=== PATIENT | male | born 1940 | race Caucasian/White ===

== ENCOUNTER → 2016-08-25 | Outpatient (REF) | payer MEDICARE ==
[~2016-08-25] MED LIST: /TAMS4CA PO; ACET500T37 PO; ACET50TA PO; ADV250INH INH; ADV500INH INH; ADVA250A INH; ALB2.5NEB INH; ALBU17IN2 INH; AMLO25TA PO; AMLO5TAB2 PO; ASPI325T28 PO; ASPI81CH PO; AZIT250T PO; BACT800T5 PO; CEFT500T PO; COLA50CA3 PO; COMBAER6 INH; DOXY75CA3 PO; DRIS50002 PO; DULC5TAB PO; FISH1000 PO; FLOM5CAP PO; FLUT44IN INH; IPRA2IN INH; IPRASOL4 INH; IPRASOL4 NEB; LEVA500T PO; LEVA750T PO; LEVO25TA5 PO; LEVO50TA7 PO; LEVO75TA4 PO; LEVOTHYROXINE PO; MOXI1TAB PO; NYST50SS SS; PRED10TA PO; PRED20TA PO; PRED20TAB PO; PRED50TA PO; PROVENTIL NEB NEB; Spiriva INH; TAMSULOSIN PO; TIOT18INH INH; VITA10002 PO; VITA100041 PO; XARE20TA PO; ZETI10TA21 PO; combivent INH
== END ==
LOC: M LABDRWAD 12:27
PROVIDERS: ATTEND Urology
DX: Z85.46 Personal history of malignant neoplasm of prostate (principal)

== ENCOUNTER → 2016-09-30 | Outpatient (REF) | payer MEDICARE ==
[~2016-09-30] MED LIST changes: +ACET-683 PO; -ACET500T37 PO; +LEVA1TAB2 PO; -LEVA500T PO; -LEVA750T PO; +LEVA750T7 PO; +VITA-182 PO; -VITA100041 PO
[2016-09-30 12:34] LABS: MEAN CORPUSCULAR HEMOGLOBIN 32.4 pg (27.0-33.0); MEAN CORPUSCULAR HGB CONC 33.6 g/dl (32.0-36.5); MEAN CORPUSCULAR VOLUME 96.5 fl (80.0-96.0); RED CELL DISTRIBUTION WIDTH 12.8 % (11.5-14.5)
[2016-09-30 12:36] LABS: VITAMIN B12 LEVEL 1055 PG/ML
[2016-09-30 12:38] LABS: FOLATE 23.1 NG/ML
[2016-09-30 12:48] LABS: ALKALINE PHOSPHATASE 61 U/L (45-117); ALT/SGPT 32 U/L (12-78); ANION GAP 8 MEQ/L (8-16); AST/SGOT 15 U/L (15-37); BILIRUBIN,TOTAL 0.2 MG/DL (0.2-1.0); BLOOD UREA NITROGEN 18 MG/DL (7-18); CALCIUM LEVEL 8.9 MG/DL (8.8-10.2); CARBON DIOXIDE LEVEL 27 MEQ/L (21-32); CHLORIDE LEVEL 104 MEQ/L (98-107); CHOLESTEROL LEVEL 219 MG/DL (<200); CREATININE FOR GFR 0.72 MG/DL (0.70-1.30); FREE T4 1.47 NG/DL (0.76-1.46); GLOMERULAR FILTRATION RATE > 60.0 (>42); GLUCOSE, FASTING 203 MG/DL (83-110); POTASSIUM SERUM 3.8 MEQ/L (3.5-5.1); SODIUM LEVEL 139 MEQ/L (136-145); TRIGLYCERIDES LEVEL 125 MG/DL (<150)
== END ==
LOC: M SFHCADAM 09:03
PROVIDERS: ATTEND Physician Assistant
DX: I48.91 Unspecified atrial fibrillation (principal); M13.0 Polyarthritis, unspecified; J44.9 Chronic obstructive pulmonary disease, unspecified; E03.9 Hypothyroidism, unspecified; E53.8 Deficiency of other specified B group vitamins
CPT/HCPCS: 80053; 80061; 82607; 82746; 84439; 84443; 85027; G0463

== ENCOUNTER → 2016-10-13 | Outpatient (CLI) | payer MEDICARE ==
[~2016-10-13] MED LIST changes: -ACET-683 PO; +ACET500T37 PO; -LEVA1TAB2 PO; +LEVA500T PO; +LEVA750T PO; -LEVA750T7 PO; -VITA-182 PO; +VITA100041 PO
--- NOTE | 2016-10-13 12:13 | REP ---
Clinical: Follow up pulmonary nodule(s). Comparison: 09/27/2015, 07/29/2014. Findings: Moderate stable emphysematous changes are again appreciated. Small scattered ill-defined areas of density in the basilar right upper lobe, right middle lobe and right lower lobe appear more prominent than prior examination. Specifically, an area of opacity measuring 14 mm identified in the deep right sulcus (image 104) along with similar smaller opacities noted. The previously identified small cavitary-type of lesion in the right lower lobe now demonstrates a small adjacent 5 mm soft tissue nodule (image 89) which is more conspicuous than prior examination. No pleural effusion. No pneumothorax. Tracheobronchial tree is patent. The mediastinum is relatively stable and again demonstrates atherosclerotic changes to the thoracic aorta and coronary arteries without cardiomegaly or pericardial effusion. Sub centimeter mediastinal lymph nodes are nonspecific. Surrounding musculoskeletal structures are intact. Impression: Current examination demonstrates new small areas of nodularity/opacity primarily in the deep right sulcus, and the previously noted small cavitary lesion in the right lower lobe has a 5 mm soft tissue nodule which appears more conspicuous than prior examination. A 3-6 month follow-up examination is recommended and if these areas of abnormality persist or enlarge, further investigation including possible PET CT or biopsy may be warranted. Signed by Jordi Wagner MD 10/13/2016 08:45 A
== END ==
LOC: M RAD 07:26
PROVIDERS: ATTEND Internal Medicine Pulmonary Disease
DX: R91.8 Other nonspecific abnormal finding of lung field (principal)

== ENCOUNTER → 2017-01-12 | Outpatient (CLI) | payer MEDICARE ==
[~2017-01-12] MED LIST changes: +ACET-683 PO; -ACET500T37 PO; +LEVA1TAB2 PO; -LEVA500T PO; -LEVA750T PO; +LEVA750T7 PO; +VITA-182 PO; -VITA100041 PO
--- NOTE | 2017-01-12 18:30 | REP ---
REASON: Followup lung nodules. COMPARISON: All priors were reviewed, the latest of which is dated 10/13/2016. The mediastinum and pulmonary zi are unchanged. There are no pleural or pericardial effusions. There is no change in appearance of the imaged upper abdomen or imaged osseous structures. Evaluation of the lung león shows the right lower cavitary lesion to be completely unchanged and the nodular density in the right CP angle to have completely resolved. There are scattered lung field curvilinear and asymmetrical opacities which are stable not only from the latest prior but from older exams. Emphysematous changes are seen throughout the lung león with lung field hyperexpansion and small cystic air spaces with upper lobe predominance status quo. No new abnormal nodules, masses, or opacities have been developed. IMPRESSION: 1. Unchanged small cavitary lesion in right lower lobe. 2. Resolved nodule in the right CP angle. 3. Stable chronic lung field changes as described above. Signed by Roger Vegas DO 01/13/2017 09:47 A
== END ==
LOC: M RAD 09:30
PROVIDERS: ATTEND Internal Medicine Pulmonary Disease
DX: R91.8 Other nonspecific abnormal finding of lung field (principal)

== ENCOUNTER 2017-04-27 03:26 | Emergency (ER) | payer MEDICARE ==
[2017-04-27] MEDS: methylPREDNISolone INJ 125 MG/2 ML VIAL (J2930) IV ×5 (04:30)
[2017-04-27] MEDS: IPRATROPIUM 0.5MG/ALBUTEROL 2.5MG INH SOL UD 3ML (DUONEB)(J7620) NEB ×15 (04:48→04:49)
[2017-04-27 04:59] LABS: BASO % 0.3 % (0.0-1.0); EOS % 0.3 % (0.0-3.0); HEMATOCRIT 42.8 % (42.0-52.0); HEMOGLOBIN 14.3 g/dl (14.0-18.0); IMMATURE GRANULOCYTE % 0.2 % (0-0); LYMPH # 1.2 10^3/uL (1.5-4.5); LYMPH % 11.4 % (24.0-44.0); MEAN CORPUSCULAR HGB CONC 33.4 g/dl (32.0-36.5); MEAN CORPUSCULAR VOLUME 92.6 fl (80.0-96.0); MONO # 0.7 10^3/uL (0.0-0.8); NEUTROPHILS # 8.5 10^3/uL (1.8-7.7); NEUTROPHILS % 80.8 % (36.0-66.0); PLATELET COUNT, AUTOMATED 264 10^3/uL (150-450); RED BLOOD COUNT 4.62 10^6/uL (4.30-6.10); RED CELL DISTRIBUTION WIDTH 13.1 % (11.5-14.5); VENOUS BASE EXCESS 2.9 (-2.0-2.0); VENOUS O2 SATURATION 68.1 % (60.0-80.0); VENOUS PARTIAL PRESSURE O2 35.2 mmHg (30.0-50.0); VENOUS PH 7.381 UNITS (7.330-7.430); VENOUS STANDARD HCO3 26.2 MEQ/L; VENOUS TOTAL CO2 30.5 MEQ/L (24.0-28.0); WHITE BLOOD COUNT 10.5 10^3/uL (4.0-10.0)
[2017-04-27 05:23] LABS: ANION GAP 7 MEQ/L (8-16); BLOOD UREA NITROGEN 10 MG/DL (7-18); CALCIUM LEVEL 8.3 MG/DL (8.8-10.2); CARBON DIOXIDE LEVEL 30 MEQ/L (21-32); CHLORIDE LEVEL 105 MEQ/L (98-107); CK-MB VALUE MASS 1.7 NG/ML (0.0-3.6); CPK CREATINE PHOSPHOKINASE 55 U/L (39-308); CREATININE FOR GFR 0.76 MG/DL (0.70-1.30); GLOMERULAR FILTRATION RATE > 60.0 (>42); GLUCOSE, FASTING 118 MG/DL (83-110); MB/CK RELATIVE INDEX 3.09 (< OR =4); POTASSIUM SERUM 4.1 MEQ/L (3.5-5.1); SODIUM LEVEL 142 MEQ/L (136-145); TROPONIN I < 0.02 NG/ML (< 0.10)
[2017-04-27] MEDS: LevoFLOXacin 750 MG TABLET PO ×5 (06:15)
== END 2017-04-27 07:01 | disposition home or self-care (01) ==
LOC: M ED 03:26
DX: J44.1 Chronic obstructive pulmonary disease with (acute) exacerbation (principal); Z87.891 Personal history of nicotine dependence
CPT/HCPCS: J2930

== ENCOUNTER 2017-07-02 19:28 | Inpatient (IN) | payer MEDICARE ==
[2017-07-02 20:46] LABS: BASO % 0.3 % (0.0-1.0); EOS # 0.1 10^3/uL (0.0-0.50); EOS % 0.5 % (0.0-3.0); HEMATOCRIT 43.7 % (42.0-52.0); HEMOGLOBIN 14.5 g/dl (14.0-18.0); IMMATURE GRANULOCYTE % 0.4 % (0-3.0); LYMPH # 1.2 10^3/uL (1.5-4.5); LYMPH % 10.8 % (24.0-44.0); MEAN CORPUSCULAR HEMOGLOBIN 31.3 pg (27.0-33.0); MEAN CORPUSCULAR HGB CONC 33.2 g/dl (32.0-36.5); MEAN CORPUSCULAR VOLUME 94.2 fl (80.0-96.0); MONO # 0.6 10^3/uL (0.0-0.8); MONO % 5.5 % (0.0-5.0); NEUTROPHILS # 8.8 10^3/uL (1.8-7.7); NEUTROPHILS % 82.5 % (36.0-66.0); PLATELET COUNT, AUTOMATED 301 10^3/uL (150-450); RED BLOOD COUNT 4.64 10^6/uL (4.30-6.10); WHITE BLOOD COUNT 10.6 10^3/uL (4.0-10.0)
[2017-07-02 21:13] LABS: LACTIC ACID SEPSIS PROTOCOL 1.7 MMOL/L (0.4-2.0)
[2017-07-02 21:14] LABS: ANION GAP 9 MEQ/L (8-16); BLOOD UREA NITROGEN 10 MG/DL (7-18); CALCIUM LEVEL 8.7 MG/DL (8.8-10.2); CARBON DIOXIDE LEVEL 26 MEQ/L (21-32); CHLORIDE LEVEL 107 MEQ/L (98-107); CPK CREATINE PHOSPHOKINASE 67 U/L (39-308); CREATININE FOR GFR 0.71 MG/DL (0.70-1.30); GLOMERULAR FILTRATION RATE > 60.0 (>42); GLUCOSE, FASTING 127 MG/DL (70-100); SODIUM LEVEL 142 MEQ/L (136-145); TROPONIN I < 0.02 NG/ML (< 0.10)
[2017-07-02 21:15] LABS: CK-MB VALUE MASS 1.5 NG/ML (0.0-3.6); MB/CK RELATIVE INDEX 2.23 (< OR =4); NT-PRO BNP 249 PG/ML (<450)
[2017-07-02] MEDS: IPRATROPIUM 0.5MG/ALBUTEROL 2.5MG INH SOL UD 3ML (DUONEB)(J7620) NEB ×3 (21:41)
[2017-07-02 21:44] LABS: ABG BASE EXCESS 0.5 (-2.0-2.0); ABG HCO3 24.1 MEQ/L (22.0-26.0); ABG O2 SATURATION 97.8 % (95.0-99.0); ABG PARTIAL PRESSURE CO2 35.9 mmHg (35.0-45.0); ABG PARTIAL PRESSURE O2 96.8 mmHg (75.0-100.0); ABG STANDARD HCO3 24.9 MEQ/L (22.0-26.0); ABG TOTAL CO2 25.2 MEQ/L (23.0-31.0); ABG pH (ARTERIAL) 7.445 UNITS (7.350-7.450)
[2017-07-02 21:55] LABS: INFLUENZA A AMPLIFICATION NEGATIVE (NEGATIVE); INFLUENZA B AMPLIFICATION NEGATIVE (NEGATIVE)
[2017-07-02] MEDS: CEFTRIAXONE SOD 1 GM in APPROPRIATE DILUENT 1 EA IV (23:11)
[2017-07-02] MEDS: AZITHROMYCIN 250 MG TAB PO (23:11)
[2017-07-03] MEDS: NS 1,000 ML IV (00:11)
[2017-07-03] MEDS ORDERED: BISACODYL 10 MG SUPP PR (00:15)
[2017-07-03] MEDS ORDERED: IPRATROPIUM 0.5MG/ALBUTEROL 2.5MG INH SOL UD 3ML (DUONEB)(J7620) NEB (00:15)
[2017-07-03] MEDS ORDERED: ONDANSETRON 4MG/2ML VIAL (J2405) IV (00:15)
[2017-07-03] MEDS: LEVOTHYROXINE 75MCG TABLET (0.075MG) PO (05:39)
[2017-07-03 06:47] LABS: CPK CREATINE PHOSPHOKINASE 43 U/L (39-308); MB/CK RELATIVE INDEX 2.32 (< OR =4); TROPONIN I < 0.02 NG/ML (< 0.10)
[2017-07-03] MEDS: RIVAROXABAN 15 MG TAB (XARELTO) PO (09:15)
[2017-07-03] MEDS: TAMSULOSIN 0.4 MG CAP PO (09:15)
[2017-07-03] MEDS: IPRATROPIUM 0.5MG/ALBUTEROL 2.5MG INH SOL UD 3ML (DUONEB)(J7620) NEB ×3 (09:20→20:00)
[2017-07-03] MEDS ORDERED: ISOVUE-370 76% 100ML VIAL (Q9967) As Ordered (09:40)
[2017-07-03] MEDS: ADVAIR HFA 115/21MCG INHALER INH ×2 (14:41→21:04)
[2017-07-03] MEDS: TIOTROPIUM INHALER/CAPSULE (SPIRIVA) INH (14:41)
[2017-07-03] MEDS: ACETAMINOPHEN TAB 650MG DOSE (2X325MG) PO (16:00)
[2017-07-03 18:09] LABS: D-DIMER QUANT 296.8 ng/ml (<500)
[2017-07-03] MEDS: CEFTRIAXONE SOD 2 GM in APPROPRIATE DILUENT 1 EA IV (22:24)
[2017-07-03] MEDS: AZITHROMYCIN INJ 500 MG, VIAL MATE ADAPTER 1 EACH in D5W 250 ML IV (23:02)
[2017-07-04] MEDS: IPRATROPIUM 0.5MG/ALBUTEROL 2.5MG INH SOL UD 3ML (DUONEB)(J7620) NEB ×4 (01:42→20:00)
[2017-07-04] MEDS: ACETAMINOPHEN TAB 650MG DOSE (2X325MG) PO (02:37)
[2017-07-04] MEDS: LEVOTHYROXINE 75MCG TABLET (0.075MG) PO (05:42)
[2017-07-04 06:35] LABS: HEMATOCRIT 38.3 % (42.0-52.0); HEMOGLOBIN 12.8 g/dl (14.0-18.0); MEAN CORPUSCULAR HEMOGLOBIN 31.4 pg (27.0-33.0); MEAN CORPUSCULAR HGB CONC 33.4 g/dl (32.0-36.5); MEAN CORPUSCULAR VOLUME 94.1 fl (80.0-96.0); PLATELET COUNT, AUTOMATED 319 10^3/uL (150-450); RED BLOOD COUNT 4.07 10^6/uL (4.30-6.10)
[2017-07-04 06:52] LABS: ANION GAP 5 MEQ/L (8-16); BLOOD UREA NITROGEN 16 MG/DL (7-18); CALCIUM LEVEL 8.8 MG/DL (8.8-10.2); CARBON DIOXIDE LEVEL 31 MEQ/L (21-32); CHLORIDE LEVEL 106 MEQ/L (98-107); CREATININE FOR GFR 0.64 MG/DL (0.70-1.30); FREE T4 1.18 NG/DL (0.76-1.46); GLOMERULAR FILTRATION RATE > 60.0 (>42); GLUCOSE, FASTING 104 MG/DL (70-100); SODIUM LEVEL 142 MEQ/L (136-145); THYROID STIMULATING HORMONE 0.847 uIU/ML (0.358-3.740)
[2017-07-04] MEDS: TIOTROPIUM INHALER/CAPSULE (SPIRIVA) INH (07:38)
[2017-07-04] MEDS: ADVAIR HFA 115/21MCG INHALER INH ×2 (07:38→21:41)
[2017-07-04] MEDS: RIVAROXABAN 15 MG TAB (XARELTO) PO (09:33)
[2017-07-04] MEDS: TAMSULOSIN 0.4 MG CAP PO (09:33)
[2017-07-04] MEDS: TUBERCULIN PPD 5 UNITS/0.1 ML ID (13:23)
[2017-07-04] MEDS: guaiFENesin ER 600 MG TAB PO (22:09)
[2017-07-04] MEDS: CEFTRIAXONE SOD 2 GM in APPROPRIATE DILUENT 1 EA IV (23:09)
[2017-07-05] MEDS: AZITHROMYCIN INJ 500 MG, VIAL MATE ADAPTER 1 EACH in D5W 250 ML IV
[2017-07-05] MEDS: IPRATROPIUM 0.5MG/ALBUTEROL 2.5MG INH SOL UD 3ML (DUONEB)(J7620) NEB ×4 (02:31→20:00)
[2017-07-05] MEDS: LEVOTHYROXINE 75MCG TABLET (0.075MG) PO (05:31)
[2017-07-05 05:42] LABS: BASO % 0.4 % (0.0-1.0); EOS # 0.1 10^3/uL (0.0-0.50); EOS % 0.8 % (0.0-3.0); HEMATOCRIT 38.5 % (42.0-52.0); HEMOGLOBIN 12.9 g/dl (14.0-18.0); IMMATURE GRANULOCYTE % 0.5 % (0-3.0); LYMPH # 1.8 10^3/uL (1.5-4.5); MEAN CORPUSCULAR HEMOGLOBIN 31.3 pg (27.0-33.0); MEAN CORPUSCULAR HGB CONC 33.5 g/dl (32.0-36.5); MEAN CORPUSCULAR VOLUME 93.4 fl (80.0-96.0); MONO # 0.6 10^3/uL (0.0-0.8); MONO % 6.5 % (0.0-5.0); NEUTROPHILS # 6.9 10^3/uL (1.8-7.7); NEUTROPHILS % 72.8 % (36.0-66.0); PLATELET COUNT, AUTOMATED 300 10^3/uL (150-450); RED BLOOD COUNT 4.12 10^6/uL (4.30-6.10); RED CELL DISTRIBUTION WIDTH 13.2 % (11.5-14.5); WHITE BLOOD COUNT 9.5 10^3/uL (4.0-10.0)
[2017-07-05 06:01] LABS: ALKALINE PHOSPHATASE 68 U/L (45-117); ALT/SGPT 16 U/L (12-78); ANION GAP 7 MEQ/L (8-16); AST/SGOT 13 U/L (7-37); BLOOD UREA NITROGEN 14 MG/DL (7-18); CALCIUM LEVEL 8.3 MG/DL (8.8-10.2); CARBON DIOXIDE LEVEL 29 MEQ/L (21-32); CHLORIDE LEVEL 106 MEQ/L (98-107); CREATININE FOR GFR 0.63 MG/DL (0.70-1.30); GLOMERULAR FILTRATION RATE > 60.0 (>42); GLUCOSE, FASTING 103 MG/DL (70-100); SODIUM LEVEL 142 MEQ/L (136-145)
[2017-07-05 06:02] LABS: ALBUMIN 2.8 GM/DL (3.2-5.2); ALBUMIN/GLOBULIN RATIO 0.93 (1.00-1.93); BILIRUBIN,TOTAL 0.2 MG/DL (0.2-1.0); PSA SCREENING 0.25 NG/ML (< 4.0); TOTAL PROTEIN 5.8 GM/DL (6.4-8.2)
[2017-07-05] MEDS: TIOTROPIUM INHALER/CAPSULE (SPIRIVA) INH (07:34)
[2017-07-05] MEDS: ADVAIR HFA 115/21MCG INHALER INH ×2 (07:34→19:40)
[2017-07-05] MEDS: TAMSULOSIN 0.4 MG CAP PO (08:24)
[2017-07-05] MEDS: guaiFENesin ER 600 MG TAB PO ×2 (08:24→20:24)
[2017-07-05] MEDS: RIVAROXABAN 15 MG TAB (XARELTO) PO (08:24)
[2017-07-05 14:29] LABS: INR 1.61; PROTHROMBIN TIME 19.6 SECONDS (12.4-14.5)
[2017-07-05 14:30] LABS: PARTIAL THROMBOPLASTIN TIME 46.1 SECONDS (26.8-37.9)
[2017-07-05 14:40] LABS: QUANTIFERON GOLD TB Negative (Negative); TB Test (QFT) Antigen 0.02 IU/mL (.); TB Test (QFT) Antigen Minus Ni <0.01 IU/mL (.); TB Test (QFT) Mitogen 7.92 IU/mL (.); TB Test (QFT) Nil 0.03 IU/mL (.)
[2017-07-05] MEDS: CEFTRIAXONE SOD 2 GM in APPROPRIATE DILUENT 1 EA IV (22:56)
[2017-07-06] MEDS: AZITHROMYCIN INJ 500 MG, VIAL MATE ADAPTER 1 EACH in D5W 250 ML IV ×2 (00:11→23:45)
[2017-07-06] MEDS: IPRATROPIUM 0.5MG/ALBUTEROL 2.5MG INH SOL UD 3ML (DUONEB)(J7620) NEB ×4 (01:16→19:55)
[2017-07-06] MEDS: LEVOTHYROXINE 75MCG TABLET (0.075MG) PO (05:34)
[2017-07-06 05:49] LABS: BASO % 0.5 % (0.0-1.0); EOS # 0.2 10^3/uL (0.0-0.50); EOS % 1.9 % (0.0-3.0); HEMATOCRIT 38.6 % (42.0-52.0); HEMOGLOBIN 12.6 g/dl (14.0-18.0); IMMATURE GRANULOCYTE % 0.5 % (0-3.0); LYMPH % 25.7 % (24.0-44.0); MEAN CORPUSCULAR HEMOGLOBIN 30.3 pg (27.0-33.0); MEAN CORPUSCULAR HGB CONC 32.6 g/dl (32.0-36.5); MEAN CORPUSCULAR VOLUME 92.8 fl (80.0-96.0); MONO # 0.6 10^3/uL (0.0-0.8); MONO % 7.1 % (0.0-5.0); NEUTROPHILS % 64.3 % (36.0-66.0); PLATELET COUNT, AUTOMATED 315 10^3/uL (150-450); RED BLOOD COUNT 4.16 10^6/uL (4.30-6.10); WHITE BLOOD COUNT 7.8 10^3/uL (4.0-10.0)
[2017-07-06 06:19] LABS: ALBUMIN 2.6 GM/DL (3.2-5.2); ALBUMIN/GLOBULIN RATIO 0.72 (1.00-1.93); ALKALINE PHOSPHATASE 66 U/L (45-117); ALT/SGPT 21 U/L (12-78); ANION GAP 7 MEQ/L (8-16); AST/SGOT 14 U/L (7-37); BILIRUBIN,TOTAL 0.2 MG/DL (0.2-1.0); BLOOD UREA NITROGEN 11 MG/DL (7-18); CALCIUM LEVEL 8.2 MG/DL (8.8-10.2); CARBON DIOXIDE LEVEL 28 MEQ/L (21-32); CHLORIDE LEVEL 108 MEQ/L (98-107); CREATININE FOR GFR 0.63 MG/DL (0.70-1.30); GLOMERULAR FILTRATION RATE > 60.0 (>42); GLUCOSE, FASTING 101 MG/DL (70-100); SODIUM LEVEL 143 MEQ/L (136-145); TOTAL PROTEIN 6.2 GM/DL (6.4-8.2)
[2017-07-06] MEDS: TIOTROPIUM INHALER/CAPSULE (SPIRIVA) INH (08:21)
[2017-07-06] MEDS: ADVAIR HFA 115/21MCG INHALER INH ×2 (08:22→19:54)
[2017-07-06] MEDS: TAMSULOSIN 0.4 MG CAP PO (09:18)
[2017-07-06] MEDS: guaiFENesin ER 600 MG TAB PO ×2 (09:18→20:34)
[2017-07-06] MEDS: PPD DOCUMENTATION ENTRY MISC XX (09:18)
[2017-07-06] MEDS: HEPARIN SOD (PORCINE) 5000 UNITS/ML VIAL SQ (11:51)
[2017-07-06 15:10] LABS: INR 1.03; PROTHROMBIN TIME 13.6 SECONDS (12.4-14.5)
[2017-07-06] MEDS: CEFTRIAXONE SOD 2 GM in APPROPRIATE DILUENT 1 EA IV (22:47)
[2017-07-07 00:07] LABS: BODY FLUID CULTURE Not Indicated (.); LEGIONELLA ANTIGEN URINE Negative (Negative); ORGANISM ID Not indicated. (.); SPECIMEN SOURCE Urine (.); URINE STREP PNEUMONIAE ANTIGEN Negative (Negative)
[2017-07-07] MEDS: IPRATROPIUM 0.5MG/ALBUTEROL 2.5MG INH SOL UD 3ML (DUONEB)(J7620) NEB ×4 (01:23→20:00)
[2017-07-07] MEDS: LEVOTHYROXINE 75MCG TABLET (0.075MG) PO (05:29)
[2017-07-07 06:04] LABS: BASO % 0.6 % (0.0-1.0); EOS # 0.2 10^3/uL (0.0-0.50); EOS % 2.6 % (0.0-3.0); HEMATOCRIT 38.2 % (42.0-52.0); HEMOGLOBIN 12.6 g/dl (14.0-18.0); IMMATURE GRANULOCYTE % 0.8 % (0-3.0); LYMPH % 27.1 % (24.0-44.0); MEAN CORPUSCULAR HEMOGLOBIN 30.7 pg (27.0-33.0); MEAN CORPUSCULAR VOLUME 92.9 fl (80.0-96.0); MONO # 0.5 10^3/uL (0.0-0.8); MONO % 6.6 % (0.0-5.0); NEUTROPHILS # 4.5 10^3/uL (1.8-7.7); NEUTROPHILS % 62.3 % (36.0-66.0); PLATELET COUNT, AUTOMATED 338 10^3/uL (150-450); RED BLOOD COUNT 4.11 10^6/uL (4.30-6.10); RED CELL DISTRIBUTION WIDTH 12.7 % (11.5-14.5); WHITE BLOOD COUNT 7.2 10^3/uL (4.0-10.0)
[2017-07-07 06:19] LABS: INR 1.02; PROTHROMBIN TIME 13.5 SECONDS (12.4-14.5)
[2017-07-07 06:30] LABS: ALBUMIN 2.7 GM/DL (3.2-5.2); ALBUMIN/GLOBULIN RATIO 0.77 (1.00-1.93); ALKALINE PHOSPHATASE 71 U/L (45-117); ALT/SGPT 21 U/L (12-78); ANION GAP 7 MEQ/L (8-16); AST/SGOT 13 U/L (7-37); BILIRUBIN,TOTAL 0.3 MG/DL (0.2-1.0); BLOOD UREA NITROGEN 10 MG/DL (7-18); CALCIUM LEVEL 8.5 MG/DL (8.8-10.2); CARBON DIOXIDE LEVEL 30 MEQ/L (21-32); CHLORIDE LEVEL 104 MEQ/L (98-107); CREATININE FOR GFR 0.74 MG/DL (0.70-1.30); GLOMERULAR FILTRATION RATE > 60.0 (>42); GLUCOSE, FASTING 102 MG/DL (70-100); POTASSIUM SERUM 4.1 MEQ/L (3.5-5.1); SODIUM LEVEL 141 MEQ/L (136-145); TOTAL PROTEIN 6.2 GM/DL (6.4-8.2)
[2017-07-07] MEDS: TIOTROPIUM INHALER/CAPSULE (SPIRIVA) INH (08:39)
[2017-07-07] MEDS: ADVAIR HFA 115/21MCG INHALER INH ×2 (08:39→19:24)
[2017-07-07] MEDS: TAMSULOSIN 0.4 MG CAP PO (09:57)
[2017-07-07] MEDS: HEPARIN SOD (PORCINE) 5000 UNITS/ML VIAL SQ (09:58)
[2017-07-07] MEDS: guaiFENesin ER 600 MG TAB PO ×2 (09:58→20:58)
[2017-07-07] MEDS ORDERED: DOCUSATE SODIUM 100 MG CAP PO (10:45)
[2017-07-07] MEDS ORDERED: LIDOCAINE 1% MDV 20ML VIAL As Ordered (11:49)
[2017-07-07] MEDS ORDERED: RIVAROXABAN 15 MG TAB (XARELTO) PO (18:00)
[2017-07-07] MEDS: ACETAMINOPHEN TAB 650MG DOSE (2X325MG) PO (18:38)
[2017-07-07] MEDS: CEFDINIR 300 MG CAP (OMNICEF) PO (20:58)
[2017-07-08] MEDS: IPRATROPIUM 0.5MG/ALBUTEROL 2.5MG INH SOL UD 3ML (DUONEB)(J7620) NEB ×2 (01:12→07:45)
[2017-07-08] MEDS: LEVOTHYROXINE 75MCG TABLET (0.075MG) PO (05:35)
[2017-07-08] MEDS: TIOTROPIUM INHALER/CAPSULE (SPIRIVA) INH (07:45)
[2017-07-08] MEDS: ADVAIR HFA 115/21MCG INHALER INH (07:45)
[2017-07-08] MEDS: TAMSULOSIN 0.4 MG CAP PO (09:58)
[2017-07-08] MEDS: guaiFENesin ER 600 MG TAB PO (09:58)
[2017-07-08] MEDS: CEFDINIR 300 MG CAP (OMNICEF) PO (09:58)
[2017-07-08] MEDS: AZITHROMYCIN 250 MG TAB PO (09:58)
== END 2017-07-08 15:00 | disposition home or self-care (01) | DRG 179 ==
LOC: M ED INP 19:29 → M MSPAV 07-03 19:39 → M ED 19:28
PROC: 0BBF3ZX Excision of Right Lower Lung Lobe, Percutaneous Approach, Diagnostic (ICD-10-PCS; principal; 2017-07-07)
DX: J15.6 Pneumonia due to other Gram-negative bacteria (principal); J44.9 Chronic obstructive pulmonary disease, unspecified; I48.91 Unspecified atrial fibrillation; Z66 Do not resuscitate; E03.9 Hypothyroidism, unspecified; Z92.3 Personal history of irradiation; Z88.8 Allergy status to other drugs, medicaments and biological substances; Z79.899 Other long term (current) drug therapy; Z79.01 Long term (current) use of anticoagulants; Z85.46 Personal history of malignant neoplasm of prostate; Z87.891 Personal history of nicotine dependence; B96.89 Other specified bacterial agents as the cause of diseases classified elsewhere

== ENCOUNTER → 2017-08-31 | Outpatient (REF) | payer MEDICARE ==
[2017-08-31 13:29] LABS: PROSTATIC SPECIFIC AG MONITOR 0.47 NG/ML (< 4.0)
== END ==
LOC: M LAB REF 12:11
DX: Z08 Encounter for follow-up examination after completed treatment for malignant neoplasm (principal); Z85.46 Personal history of malignant neoplasm of prostate
CPT/HCPCS: 84153

== ENCOUNTER → 2017-11-05 | Outpatient (REF) | payer MEDICARE | LOC: M LAB REF 13:20 | DX: J44.9 Chronic obstructive pulmonary disease, unspecified (principal) | CPT/HCPCS: 87184 ==

== ENCOUNTER → 2017-11-12 | Outpatient (CLI) | payer MEDICARE | LOC: M SMT 09:52 | DX: J44.9 Chronic obstructive pulmonary disease, unspecified (principal) | CPT/HCPCS: 71046 ==

== ENCOUNTER 2017-11-18 18:55 | Emergency (ER) | payer MEDICARE ==
[2017-11-18] MEDS: IPRATROPIUM 0.5MG/ALBUTEROL 2.5MG INH SOL UD 3ML (DUONEB)(J7620) NEB (20:32)
[2017-11-18 20:40] LABS: BASO % 0.3 % (0.0-1.0); EOS # 0.1 10^3/uL (0.0-0.50); EOS % 0.8 % (0.0-3.0); HEMATOCRIT 43.8 % (42.0-52.0); HEMOGLOBIN 14.4 g/dl (13.5-17.5); IMMATURE GRANULOCYTE % 0.5 % (0-3.0); LYMPH # 1.9 10^3/uL (1.5-4.5); LYMPH % 14.2 % (24.0-44.0); MEAN CORPUSCULAR HEMOGLOBIN 31.5 pg (27.0-33.0); MEAN CORPUSCULAR HGB CONC 32.9 g/dl (32.0-36.5); MEAN CORPUSCULAR VOLUME 95.8 fl (80.0-96.0); MONO # 0.9 10^3/uL (0.0-0.8); MONO % 6.6 % (0.0-5.0); NEUTROPHILS # 10.2 10^3/uL (1.8-7.7); NEUTROPHILS % 77.6 % (36.0-66.0); PLATELET COUNT, AUTOMATED 306 10^3/uL (150-450); RED BLOOD COUNT 4.57 10^6/uL (4.30-6.10); RED CELL DISTRIBUTION WIDTH 13.1 % (11.5-14.5); WHITE BLOOD COUNT 13.1 10^3/uL (4.0-10.0)
[2017-11-18 20:43] LABS: LACTIC ACID SEPSIS PROTOCOL 1.2 MMOL/L (0.4-2.0)
[2017-11-18 20:45] LABS: ANION GAP 7 MEQ/L (8-16); BLOOD UREA NITROGEN 12 MG/DL (7-18); CALCIUM LEVEL 7.8 MG/DL (8.8-10.2); CARBON DIOXIDE LEVEL 28 MEQ/L (21-32); CHLORIDE LEVEL 109 MEQ/L (98-107); CK-MB VALUE MASS 1.7 NG/ML (<3.6); CPK CREATINE PHOSPHOKINASE 77 U/L (39-308); CREATININE FOR GFR 0.62 MG/DL (0.70-1.30); GLOMERULAR FILTRATION RATE > 60.0 (>42); GLUCOSE, FASTING 77 MG/DL (70-100); SODIUM LEVEL 144 MEQ/L (136-145); TROPONIN I < 0.02 NG/ML (< 0.10)
[2017-11-18 20:56] LABS: ABG BASE EXCESS 2.3 (-2.0-2.0); ABG HCO3 26.7 MEQ/L (22.0-26.0); ABG O2 SATURATION 97.7 % (95.0-99.0); ABG PARTIAL PRESSURE CO2 40.9 mmHg (35.0-45.0); ABG PARTIAL PRESSURE O2 92.9 mmHg (75.0-100.0); ABG STANDARD HCO3 26.5 MEQ/L (22.0-26.0); ABG pH (ARTERIAL) 7.433 UNITS (7.350-7.450)
[2017-11-18] MEDS: ONDANSETRON 4MG/2ML VIAL (J2405) IV (22:30)
[2017-11-18] MEDS: MORPHINE 2 MG/ML 1ML SYRINGE (J2270) IV (22:51)
[2017-11-18] MEDS ORDERED: ISOVUE-370 76% 100ML VIAL (Q9967) As Ordered (22:53)
[2017-11-18 23:45] LABS: CK-MB VALUE MASS 1.1 NG/ML (<3.6); CPK CREATINE PHOSPHOKINASE 63 U/L (39-308); MB/CK RELATIVE INDEX 1.74 (< OR =4); TROPONIN I < 0.02 NG/ML (< 0.10)
[2017-11-19] MEDS: LevoFLOXacin 750 MG TABLET PO (01:00)
[2017-11-19] MEDS: NORCO 5/325MG TABLET (BULK FOR ED) PO (01:00)
== END 2017-11-19 01:13 | disposition home or self-care (01) ==
LOC: M ED 11-19 01:13
DX: J18.9 Pneumonia, unspecified organism (principal); I45.10 Unspecified right bundle-branch block; I48.91 Unspecified atrial fibrillation; I25.10 Atherosclerotic heart disease of native coronary artery without angina pectoris; I25.2 Old myocardial infarction; J44.9 Chronic obstructive pulmonary disease, unspecified; Z95.5 Presence of coronary angioplasty implant and graft; Z87.891 Personal history of nicotine dependence; Z79.82 Long term (current) use of aspirin; Z79.899 Other long term (current) drug therapy; Z88.8 Allergy status to other drugs, medicaments and biological substances
CPT/HCPCS: J2405

== ENCOUNTER 2017-12-03 13:34 | Inpatient (IN) | payer MEDICARE ==
[2017-12-03] MEDS: ACETAMINOPHEN 500 MG TAB PO ×2 (14:26→22:05)
[2017-12-03] MEDS: IPRATROPIUM 0.5MG/ALBUTEROL 2.5MG INH SOL UD 3ML (DUONEB)(J7620) NEB ×2 (15:20→20:24)
[2017-12-03] MEDS: cefTRIAXone SOD 2 GM in D5W MINI-BAG PLUS 50 ML IV (16:33)
[2017-12-03] MEDS: FOLIC ACID 1 MG TAB PO (16:34)
[2017-12-03 17:07] LABS: HEMATOCRIT 44.1 % (42.0-52.0); HEMOGLOBIN 14.6 g/dl (13.5-17.5); MEAN CORPUSCULAR HEMOGLOBIN 31.8 pg (27.0-33.0); MEAN CORPUSCULAR HGB CONC 33.1 g/dl (32.0-36.5); MEAN CORPUSCULAR VOLUME 96.1 fl (80.0-96.0); PLATELET COUNT, AUTOMATED 294 10^3/uL (150-450); RED BLOOD COUNT 4.59 10^6/uL (4.30-6.10); WHITE BLOOD COUNT 18.6 10^3/uL (4.0-10.0)
[2017-12-03] MEDS: methylPREDNISolone INJ 125 MG/2 ML VIAL (J2930) IV ×2 (17:19→22:05)
[2017-12-03 17:36] LABS: ALBUMIN 3.4 GM/DL (3.2-5.2); ALBUMIN/GLOBULIN RATIO 1.06 (1.00-1.93); ALKALINE PHOSPHATASE 66 U/L (45-117); ALT/SGPT 23 U/L (12-78); ANION GAP 7 MEQ/L (8-16); AST/SGOT 15 U/L (7-37); BILIRUBIN,TOTAL 0.8 MG/DL (0.2-1.0); BLOOD UREA NITROGEN 18 MG/DL (7-18); CALCIUM LEVEL 8.8 MG/DL (8.8-10.2); CARBON DIOXIDE LEVEL 28 MEQ/L (21-32); CHLORIDE LEVEL 106 MEQ/L (98-107); GLOMERULAR FILTRATION RATE > 60.0 (>42); GLUCOSE, FASTING 137 MG/DL (70-100); POTASSIUM SERUM 4.7 MEQ/L (3.5-5.1); SODIUM LEVEL 141 MEQ/L (136-145); TOTAL PROTEIN 6.6 GM/DL (6.4-8.2)
[2017-12-03] MEDS: PANTOPRAZOLE 40MG INJ (PROTONIX) (C9113) IV (18:15)
[2017-12-03] MEDS: ADVAIR HFA 230/21MCG INHALER INH (20:24)
[2017-12-03] MEDS: TAMSULOSIN 0.4 MG CAP PO (21:21)
[2017-12-03] MEDS: BACTRIM 160MG/800MG DS TAB PO (21:22)
[2017-12-04] MEDS: IPRATROPIUM 0.5MG/ALBUTEROL 2.5MG INH SOL UD 3ML (DUONEB)(J7620) NEB ×8 (01:44→23:39)
[2017-12-04] MEDS: methylPREDNISolone INJ 125 MG/2 ML VIAL (J2930) IV ×4 (04:06→22:50)
[2017-12-04] MEDS: ACETAMINOPHEN 500 MG TAB PO ×3 (04:06→21:14)
[2017-12-04] MEDS: LEVOTHYROXINE 75MCG TABLET (0.075MG) PO (05:57)
[2017-12-04] MEDS: PANTOPRAZOLE 40MG INJ (PROTONIX) (C9113) IV ×2 (05:57→17:24)
[2017-12-04 06:33] LABS: HEMOGLOBIN 14.7 g/dl (13.5-17.5); MEAN CORPUSCULAR HEMOGLOBIN 31.1 pg (27.0-33.0); MEAN CORPUSCULAR HGB CONC 33.4 g/dl (32.0-36.5); MEAN CORPUSCULAR VOLUME 93.2 fl (80.0-96.0); PLATELET COUNT, AUTOMATED 323 10^3/uL (150-450); RED BLOOD COUNT 4.72 10^6/uL (4.30-6.10); RED CELL DISTRIBUTION WIDTH 13.1 % (11.5-14.5); WHITE BLOOD COUNT 17.9 10^3/uL (4.0-10.0)
[2017-12-04 07:00] LABS: ANION GAP 8 MEQ/L (8-16); BLOOD UREA NITROGEN 14 MG/DL (7-18); CALCIUM LEVEL 8.9 MG/DL (8.8-10.2); CARBON DIOXIDE LEVEL 26 MEQ/L (21-32); CHLORIDE LEVEL 105 MEQ/L (98-107); CREATININE FOR GFR 0.84 MG/DL (0.70-1.30); GLOMERULAR FILTRATION RATE > 60.0 (>42); GLUCOSE, FASTING 194 MG/DL (70-100); POTASSIUM SERUM 4.4 MEQ/L (3.5-5.1); SODIUM LEVEL 139 MEQ/L (136-145)
[2017-12-04] MEDS: TIOTROPIUM INHALER/CAPSULE (SPIRIVA) INH (07:36)
[2017-12-04] MEDS: ADVAIR HFA 230/21MCG INHALER INH ×2 (07:37→19:45)
[2017-12-04] MEDS: FOLIC ACID 1 MG TAB PO (08:42)
[2017-12-04] MEDS: CYANOCOBALAMIN 500 MCG TAB PO (08:42)
[2017-12-04] MEDS: BACTRIM 160MG/800MG DS TAB PO ×2 (08:43→21:14)
[2017-12-04] MEDS: traMADol 50 MG TAB PO (09:26)
[2017-12-04] MEDS: MIRALAX *UNIT DOSE* 17GM PACKET PO (09:26)
[2017-12-04] MEDS: MORPHINE 4 MG/ML 1ML VIAL/SYRINGE (J2270) IV (12:07)
[2017-12-04] MEDS: cefTRIAXone SOD 2 GM in D5W MINI-BAG PLUS 50 ML IV (16:01)
[2017-12-04] MEDS: RIVAROXABAN 15 MG TAB (XARELTO) PO (17:24)
[2017-12-04] MEDS: TAMSULOSIN 0.4 MG CAP PO (21:14)
[2017-12-05] MEDS: IPRATROPIUM 0.5MG/ALBUTEROL 2.5MG INH SOL UD 3ML (DUONEB)(J7620) NEB ×5 (03:17→20:00)
[2017-12-05] MEDS: ACETAMINOPHEN 500 MG TAB PO ×2 (03:28→20:22)
[2017-12-05] MEDS: PANTOPRAZOLE 40MG INJ (PROTONIX) (C9113) IV ×2 (05:10→17:06)
[2017-12-05] MEDS: LEVOTHYROXINE 75MCG TABLET (0.075MG) PO (05:10)
[2017-12-05] MEDS: methylPREDNISolone INJ 125 MG/2 ML VIAL (J2930) IV ×4 (05:11→23:04)
[2017-12-05 07:25] LABS: HEMATOCRIT 43.9 % (42.0-52.0); HEMOGLOBIN 14.9 g/dl (13.5-17.5); MEAN CORPUSCULAR HEMOGLOBIN 31.7 pg (27.0-33.0); MEAN CORPUSCULAR HGB CONC 33.9 g/dl (32.0-36.5); MEAN CORPUSCULAR VOLUME 93.4 fl (80.0-96.0); PLATELET COUNT, AUTOMATED 356 10^3/uL (150-450); RED CELL DISTRIBUTION WIDTH 13.1 % (11.5-14.5); WHITE BLOOD COUNT 17.1 10^3/uL (4.0-10.0)
[2017-12-05 07:47] LABS: ANION GAP 11 MEQ/L (8-16); BLOOD UREA NITROGEN 21 MG/DL (7-18); CALCIUM LEVEL 9.2 MG/DL (8.8-10.2); CARBON DIOXIDE LEVEL 27 MEQ/L (21-32); CHLORIDE LEVEL 97 MEQ/L (98-107); CREATININE FOR GFR 0.94 MG/DL (0.70-1.30); GLOMERULAR FILTRATION RATE > 60.0 (>42); GLUCOSE, FASTING 150 MG/DL (70-100); POTASSIUM SERUM 4.2 MEQ/L (3.5-5.1); SODIUM LEVEL 135 MEQ/L (136-145)
[2017-12-05] MEDS: TIOTROPIUM INHALER/CAPSULE (SPIRIVA) INH (08:28)
[2017-12-05] MEDS: ADVAIR HFA 230/21MCG INHALER INH ×2 (08:29→20:23)
[2017-12-05] MEDS: CYANOCOBALAMIN 500 MCG TAB PO (09:00)
[2017-12-05] MEDS: FOLIC ACID 1 MG TAB PO (09:00)
[2017-12-05] MEDS: MIRALAX *UNIT DOSE* 17GM PACKET PO (09:00)
[2017-12-05] MEDS: BACTRIM 160MG/800MG DS TAB PO ×2 (09:00→20:22)
[2017-12-05 10:41] LABS: ABG BASE EXCESS 1.4 (-2.0-2.0); ABG HCO3 26.4 MEQ/L (22.0-26.0); ABG O2 SATURATION 95.2 % (95.0-99.0); ABG PARTIAL PRESSURE CO2 43.1 mmHg (35.0-45.0); ABG PARTIAL PRESSURE O2 76.2 mmHg (75.0-100.0); ABG STANDARD HCO3 25.6 MEQ/L (22.0-26.0); ABG TOTAL CO2 27.7 MEQ/L (23.0-31.0); ABG pH (ARTERIAL) 7.405 UNITS (7.350-7.450)
[2017-12-05] MEDS: traMADol 50 MG TAB PO ×2 (11:40→20:24)
[2017-12-05] MEDS: cefTRIAXone SOD 2 GM in D5W MINI-BAG PLUS 50 ML IV (16:00)
[2017-12-05] MEDS: RIVAROXABAN 15 MG TAB (XARELTO) PO (17:06)
[2017-12-05] MEDS: TAMSULOSIN 0.4 MG CAP PO (20:22)
[2017-12-06] MEDS: IPRATROPIUM 0.5MG/ALBUTEROL 2.5MG INH SOL UD 3ML (DUONEB)(J7620) NEB ×4 (01:05→20:00)
[2017-12-06] MEDS: LEVOTHYROXINE 75MCG TABLET (0.075MG) PO (05:11)
[2017-12-06] MEDS: PANTOPRAZOLE 40MG INJ (PROTONIX) (C9113) IV ×2 (05:11→17:09)
[2017-12-06] MEDS: methylPREDNISolone INJ 125 MG/2 ML VIAL (J2930) IV ×4 (05:11→22:02)
[2017-12-06 06:08] LABS: HEMATOCRIT 42.6 % (42.0-52.0); HEMOGLOBIN 14.5 g/dl (13.5-17.5); MEAN CORPUSCULAR HEMOGLOBIN 31.4 pg (27.0-33.0); MEAN CORPUSCULAR VOLUME 92.2 fl (80.0-96.0); PLATELET COUNT, AUTOMATED 375 10^3/uL (150-450); RED BLOOD COUNT 4.62 10^6/uL (4.30-6.10); RED CELL DISTRIBUTION WIDTH 13.2 % (11.5-14.5); WHITE BLOOD COUNT 12.2 10^3/uL (4.0-10.0)
[2017-12-06 06:32] LABS: ANION GAP 10 MEQ/L (8-16); BLOOD UREA NITROGEN 24 MG/DL (7-18); CALCIUM LEVEL 9.1 MG/DL (8.8-10.2); CARBON DIOXIDE LEVEL 29 MEQ/L (21-32); CHLORIDE LEVEL 94 MEQ/L (98-107); CREATININE FOR GFR 0.84 MG/DL (0.70-1.30); GLOMERULAR FILTRATION RATE > 60.0 (>42); GLUCOSE, FASTING 130 MG/DL (70-100); POTASSIUM SERUM 4.2 MEQ/L (3.5-5.1); SODIUM LEVEL 133 MEQ/L (136-145)
[2017-12-06] MEDS: TIOTROPIUM INHALER/CAPSULE (SPIRIVA) INH (07:14)
[2017-12-06] MEDS: ADVAIR HFA 230/21MCG INHALER INH ×2 (07:15→20:11)
[2017-12-06] MEDS: CYANOCOBALAMIN 500 MCG TAB PO (08:26)
[2017-12-06] MEDS: BACTRIM 160MG/800MG DS TAB PO ×2 (08:26→20:36)
[2017-12-06] MEDS: MIRALAX *UNIT DOSE* 17GM PACKET PO (08:26)
[2017-12-06] MEDS: FOLIC ACID 1 MG TAB PO (08:26)
[2017-12-06] MEDS: cefTRIAXone SOD 2 GM in D5W MINI-BAG PLUS 50 ML IV (15:16)
[2017-12-06 16:34] LABS: BEDSIDE GLUCOSE 133 MG/DL (83-110)
[2017-12-06] MEDS: RIVAROXABAN 15 MG TAB (XARELTO) PO (17:08)
[2017-12-06] MEDS: TAMSULOSIN 0.4 MG CAP PO (20:36)
[2017-12-06] MEDS: ACETAMINOPHEN 500 MG TAB PO (20:36)
[2017-12-07] MEDS: IPRATROPIUM 0.5MG/ALBUTEROL 2.5MG INH SOL UD 3ML (DUONEB)(J7620) NEB ×7 (00:30→23:18)
[2017-12-07] MEDS: PANTOPRAZOLE 40MG INJ (PROTONIX) (C9113) IV ×2 (05:21→18:07)
[2017-12-07] MEDS: LEVOTHYROXINE 75MCG TABLET (0.075MG) PO (05:21)
[2017-12-07] MEDS: methylPREDNISolone INJ 125 MG/2 ML VIAL (J2930) IV (05:21)
[2017-12-07 07:34] LABS: HEMATOCRIT 41.4 % (42.0-52.0); HEMOGLOBIN 14.2 g/dl (13.5-17.5); MEAN CORPUSCULAR HEMOGLOBIN 31.6 pg (27.0-33.0); MEAN CORPUSCULAR HGB CONC 34.3 g/dl (32.0-36.5); PLATELET COUNT, AUTOMATED 293 10^3/uL (150-450); WHITE BLOOD COUNT 7.6 10^3/uL (4.0-10.0)
[2017-12-07] MEDS: TIOTROPIUM INHALER/CAPSULE (SPIRIVA) INH (07:35)
[2017-12-07] MEDS: ADVAIR HFA 230/21MCG INHALER INH ×2 (07:36→19:07)
[2017-12-07 07:41] LABS: ANION GAP 7 MEQ/L (8-16); BLOOD UREA NITROGEN 22 MG/DL (7-18); CALCIUM LEVEL 8.8 MG/DL (8.8-10.2); CARBON DIOXIDE LEVEL 31 MEQ/L (21-32); CHLORIDE LEVEL 100 MEQ/L (98-107); CREATININE FOR GFR 0.68 MG/DL (0.70-1.30); GLOMERULAR FILTRATION RATE > 60.0 (>42); GLUCOSE, FASTING 125 MG/DL (70-100); POTASSIUM SERUM 4.7 MEQ/L (3.5-5.1); SODIUM LEVEL 138 MEQ/L (136-145)
[2017-12-07] MEDS: FOLIC ACID 1 MG TAB PO (09:23)
[2017-12-07] MEDS: MIRALAX *UNIT DOSE* 17GM PACKET PO (09:23)
[2017-12-07] MEDS: CYANOCOBALAMIN 500 MCG TAB PO (09:23)
[2017-12-07] MEDS: BACTRIM 160MG/800MG DS TAB PO (09:23)
[2017-12-07] MEDS: RIVAROXABAN 15 MG TAB (XARELTO) PO (18:07)
[2017-12-07] MEDS: TAMSULOSIN 0.4 MG CAP PO (20:52)
[2017-12-07] MEDS: CEFDINIR 300 MG CAP (OMNICEF) PO (20:52)
[2017-12-07] MEDS: predniSONE 20 MG TAB PO (20:52)
[2017-12-08] MEDS: IPRATROPIUM 0.5MG/ALBUTEROL 2.5MG INH SOL UD 3ML (DUONEB)(J7620) NEB ×2 (03:47→08:27)
[2017-12-08] MEDS: LEVOTHYROXINE 75MCG TABLET (0.075MG) PO (05:15)
[2017-12-08 07:06] LABS: HEMATOCRIT 42.2 % (42.0-52.0); HEMOGLOBIN 13.9 g/dl (13.5-17.5); MEAN CORPUSCULAR HEMOGLOBIN 31.4 pg (27.0-33.0); MEAN CORPUSCULAR HGB CONC 32.9 g/dl (32.0-36.5); MEAN CORPUSCULAR VOLUME 95.5 fl (80.0-96.0); PLATELET COUNT, AUTOMATED 299 10^3/uL (150-450); RED BLOOD COUNT 4.42 10^6/uL (4.30-6.10); RED CELL DISTRIBUTION WIDTH 13.1 % (11.5-14.5); WHITE BLOOD COUNT 10.4 10^3/uL (4.0-10.0)
[2017-12-08 07:13] LABS: ANION GAP 4 MEQ/L (8-16); BLOOD UREA NITROGEN 23 MG/DL (7-18); CALCIUM LEVEL 8.5 MG/DL (8.8-10.2); CARBON DIOXIDE LEVEL 32 MEQ/L (21-32); CHLORIDE LEVEL 103 MEQ/L (98-107); CREATININE FOR GFR 0.73 MG/DL (0.70-1.30); GLOMERULAR FILTRATION RATE > 60.0 (>42); GLUCOSE, FASTING 143 MG/DL (70-100); POTASSIUM SERUM 4.9 MEQ/L (3.5-5.1); SODIUM LEVEL 139 MEQ/L (136-145)
[2017-12-08] MEDS: ADVAIR HFA 230/21MCG INHALER INH (08:26)
[2017-12-08] MEDS: TIOTROPIUM INHALER/CAPSULE (SPIRIVA) INH (08:26)
[2017-12-08] MEDS: PANTOPRAZOLE 40MG TAB (PROTONIX) PO (10:17)
[2017-12-08] MEDS: FOLIC ACID 1 MG TAB PO (10:17)
[2017-12-08] MEDS: MIRALAX *UNIT DOSE* 17GM PACKET PO (10:17)
[2017-12-08] MEDS: CYANOCOBALAMIN 500 MCG TAB PO (10:17)
[2017-12-08] MEDS: CEFDINIR 300 MG CAP (OMNICEF) PO (10:17)
[2017-12-08] MEDS: predniSONE 20 MG TAB PO (10:17)
== END 2017-12-08 10:45 | disposition home or self-care (01) | DRG 178 ==
LOC: M MS5PR 13:34
DX: J15.6 Pneumonia due to other Gram-negative bacteria (principal); J47.1 Bronchiectasis with (acute) exacerbation; F03.91 Unspecified dementia, unspecified severity, with behavioral disturbance; D64.9 Anemia, unspecified; E03.9 Hypothyroidism, unspecified; E78.5 Hyperlipidemia, unspecified; E55.9 Vitamin D deficiency, unspecified; R09.1 Pleurisy; I48.91 Unspecified atrial fibrillation; Z79.82 Long term (current) use of aspirin; Z79.899 Other long term (current) drug therapy; Z88.8 Allergy status to other drugs, medicaments and biological substances; K21.9 Gastro-esophageal reflux disease without esophagitis; Z87.891 Personal history of nicotine dependence; N40.0 Benign prostatic hyperplasia without lower urinary tract symptoms; Z79.01 Long term (current) use of anticoagulants; E53.8 Deficiency of other specified B group vitamins; C61 Malignant neoplasm of prostate; I10 Essential (primary) hypertension

== ENCOUNTER → 2017-12-03 | Outpatient (REF) | payer MEDICARE ==
[2017-12-03 20:06] LABS: ALBUMIN 3.4 GM/DL (3.2-5.2); ALBUMIN/GLOBULIN RATIO 1.06 (1.00-1.93); ALKALINE PHOSPHATASE 68 U/L (45-117); ALT/SGPT 22 U/L (12-78); ANION GAP 7 MEQ/L (8-16); AST/SGOT 14 U/L (7-37); BILIRUBIN,TOTAL 0.5 MG/DL (0.2-1.0); BLOOD UREA NITROGEN 17 MG/DL (7-18); CALCIUM LEVEL 8.8 MG/DL (8.8-10.2); CARBON DIOXIDE LEVEL 30 MEQ/L (21-32); CHLORIDE LEVEL 108 MEQ/L (98-107); CHOLESTEROL LEVEL 201 MG/DL (<200); CHOLESTEROL RISK RATIO 3.654 (<5); CREATININE FOR GFR 0.68 MG/DL (0.70-1.30); FREE T4 1.17 NG/DL (0.76-1.46); GLOMERULAR FILTRATION RATE > 60.0 (>42); GLUCOSE, FASTING 72 MG/DL (70-100); HDL CHOLESTEROL 55 MG/DL (>40); LDL CHOLESTEROL 121.2 MG/DL (<100); NON-HDL-C 146 MG/DL; POTASSIUM SERUM 4.7 MEQ/L (3.5-5.1); SODIUM LEVEL 145 MEQ/L (136-145); TOTAL PROTEIN 6.6 GM/DL (6.4-8.2); TRIGLYCERIDES LEVEL 124 MG/DL (<150)
[2017-12-03 20:08] LABS: HEMATOCRIT 44.7 % (42.0-52.0); HEMOGLOBIN 14.4 g/dl (13.5-17.5); MEAN CORPUSCULAR HEMOGLOBIN 31.2 pg (27.0-33.0); MEAN CORPUSCULAR HGB CONC 32.2 g/dl (32.0-36.5); MEAN CORPUSCULAR VOLUME 96.8 fl (80.0-96.0); PLATELET COUNT, AUTOMATED 317 10^3/uL (150-450); RED BLOOD COUNT 4.62 10^6/uL (4.30-6.10); WHITE BLOOD COUNT 13.1 10^3/uL (4.0-10.0)
[2017-12-03 20:14] LABS: TOTAL 25(OH) VITAMIN D 33.1 NG/ML (30.0-100.0)
== END ==
LOC: M SFHCADAM 11:46
DX: D64.9 Anemia, unspecified (principal); J44.9 Chronic obstructive pulmonary disease, unspecified; E03.9 Hypothyroidism, unspecified; E78.5 Hyperlipidemia, unspecified; E55.9 Vitamin D deficiency, unspecified

== ENCOUNTER → 2018-01-04 | Outpatient (REF) | payer MEDICARE | LOC: M LABDRWAD 12:37 | DX: Z85.46 Personal history of malignant neoplasm of prostate (principal) | CPT/HCPCS: 84153 ==

== ENCOUNTER → 2018-02-11 | Outpatient (CLI) | payer MEDICARE ==
[2018-02-11 11:24] LABS: BASO # 0.1 10^3/uL (0.0-0.2); BASO % 0.5 % (0.0-1.0); EOS # 0.1 10^3/uL (0.0-0.50); EOS % 0.9 % (0.0-3.0); HEMATOCRIT 41.9 % (42.0-52.0); HEMOGLOBIN 13.5 g/dl (13.5-17.5); IMMATURE GRANULOCYTE % 0.4 % (0-3.0); LYMPH # 1.8 10^3/uL (1.5-4.5); LYMPH % 19.2 % (24.0-44.0); MEAN CORPUSCULAR HEMOGLOBIN 31.3 pg (27.0-33.0); MEAN CORPUSCULAR HGB CONC 32.2 g/dl (32.0-36.5); MEAN CORPUSCULAR VOLUME 97.2 fl (80.0-96.0); MONO # 0.7 10^3/uL (0.0-0.8); MONO % 7.8 % (0.0-5.0); NEUTROPHILS # 6.8 10^3/uL (1.8-7.7); NEUTROPHILS % 71.2 % (36.0-66.0); PLATELET COUNT, AUTOMATED 354 10^3/uL (150-450); RED BLOOD COUNT 4.31 10^6/uL (4.30-6.10); RED CELL DISTRIBUTION WIDTH 13.4 % (11.5-14.5); WHITE BLOOD COUNT 9.5 10^3/uL (4.0-10.0)
[2018-02-11 12:01] LABS: ERYTHROCYTE SEDIMENTATION RATE 52 mm/hr (0-20)
[2018-02-11 12:02] LABS: ALBUMIN 3.1 GM/DL (3.2-5.2); ALBUMIN/GLOBULIN RATIO 0.94 (1.00-1.93); ALKALINE PHOSPHATASE 84 U/L (45-117); ALT/SGPT 17 U/L (12-78); ANION GAP 6 MEQ/L (8-16); AST/SGOT 14 U/L (7-37); BILIRUBIN,TOTAL 0.3 MG/DL (0.2-1.0); BLOOD UREA NITROGEN 16 MG/DL (7-18); CALCIUM LEVEL 8.4 MG/DL (8.8-10.2); CARBON DIOXIDE LEVEL 30 MEQ/L (21-32); CHLORIDE LEVEL 107 MEQ/L (98-107); CREATININE FOR GFR 0.72 MG/DL (0.70-1.30); FOLATE 18.6 NG/ML (>5.4); GLOMERULAR FILTRATION RATE > 60.0 (>42); GLUCOSE, FASTING 87 MG/DL (70-100); POTASSIUM SERUM 4.6 MEQ/L (3.5-5.1); RHEUMATOID FACTOR QUANT < 10.0 IU/ML (<15.0); SODIUM LEVEL 143 MEQ/L (136-145); TOTAL PROTEIN 6.4 GM/DL (6.4-8.2)
[2018-02-16 13:38] LABS: ALBUMIN 3.48 GM/DL (3.29-5.55); ALBUMIN % 54.3 % (55.8-66.1); ALPHA-1-GLOBULIN % 6.6 % (2.9-4.9); ALPHA-1-GLOBULINS 0.42 GM/DL (0.17-0.41); ALPHA-2-GLOBULINS % 15.7 % (7.1-11.8); BETA-1-GLOBULINS 0.38 GM/DL (0.28-0.60); BETA-1-GLOBULINS % 5.9 % (4.7-7.2); BETA-2-GLOBULINS 0.42 GM/DL (0.19-0.55); BETA-2-GLOBULINS % 6.5 % (3.2-6.5)
[2018-02-17 14:42] LABS: ANTI DOUBLE STRAND-DNA AB 5 IU/mL (0-9); ANTINUCLEAR ANTIBODIES DIRECT Negative (Negative); SJOGREN'S ANTI SS-A <0.2 AI (0.0-0.9); SJOGREN'S ANTI SS-B <0.2 AI (0.0-0.9); VITAMIN E(ALPHA TOCOPHEROL) 10.7 mg/L (9.0-29.0); VITAMIN E(GAMMA TOCOPHEROL) 0.9 mg/L (0.5-4.9)
== END ==
LOC: M LAB 09:28
DX: G31.84 Mild cognitive impairment of uncertain or unknown etiology (principal)
CPT/HCPCS: 82746

== ENCOUNTER → 2018-04-08 | Outpatient (REF) | payer MEDICARE ==
[2018-04-08 13:17] LABS: C REACTIVE PROTEIN QUANTITATIV 0.44 MG/DL (0.00-0.30)
[2018-04-08 13:22] LABS: ERYTHROCYTE SEDIMENTATION RATE 15 mm/hr (0-20)
== END ==
LOC: M SFHCADAM 11:01
DX: M31.6 Other giant cell arteritis (principal)
CPT/HCPCS: 86140

== ENCOUNTER → 2019-01-13 | Outpatient (REF) | payer MEDICARE ==
[~2019-01-13] MED LIST changes: -/TAMS4CA PO; -ACET50TA PO; -AMLO5TAB2 PO; +AMLO5TAB6 PO; +ASPI-1 PO; +ASPI-527 PO; -ASPI325T28 PO; -ASPI81CH PO; +ASPI81CH49 PO; +AVEL1TAB3 PO; +CEFD300CAP PO; +CYAN100049 PO; -DRIS50002 PO; +DRIS50003 PO; +FLOM0.4C39 PO; -FLOM5CAP PO; +IPRA0.00 INH; +IPRA0.00 NEB; -IPRASOL4 INH; -IPRASOL4 NEB; +MAPA500T17 PO; +MEDR4PAK PO; +PRED-351 PO; -PRED10TA PO; +SPIR1CAP INH; +TYLE500T78 PO; +VITA-121 PO; -VITA10002 PO; +XARE15TA PO
[2019-01-13 19:32] LABS: BASO # 0.1 10^3/uL (0.0-0.2); BASO % 0.5 % (0.0-1.0); EOS # 0.1 10^3/uL (0.0-0.5); EOS % 1.5 % (0.0-3.0); HEMATOCRIT 48.4 % (42.0-52.0); HEMOGLOBIN 15.6 g/dl (13.5-17.5); LYMPH # 2.4 10^3/uL (1.5-5.0); MEAN CORPUSCULAR HGB CONC 32.2 g/dl (32.0-36.5); MEAN CORPUSCULAR VOLUME 99.4 fl (80.0-96.0); MONO # 0.7 10^3/uL (0.0-0.8); MONO % 7.1 % (0.0-5.0); NEUTROPHILS # 6.1 10^3/uL (1.5-8.5); NEUTROPHILS % 64.6 % (36.0-66.0); PLATELET COUNT, AUTOMATED 346 10^3/uL (150-450); RED BLOOD COUNT 4.87 10^6/uL (4.30-6.10); WHITE BLOOD COUNT 9.4 10^3/uL (4.0-10.0)
[2019-01-13 19:47] LABS: ALBUMIN 3.6 GM/DL (3.2-5.2); ALT/SGPT 22 U/L (12-78); BILIRUBIN,TOTAL 0.3 MG/DL (0.2-1.0); BLOOD UREA NITROGEN 14 MG/DL (7-18); C REACTIVE PROTEIN QUANTITATIV 2.16 MG/DL (0.00-0.30); CARBON DIOXIDE LEVEL 29 MEQ/L (21-32); CHLORIDE LEVEL 102 MEQ/L (98-107); CREATININE FOR GFR 0.69 MG/DL (0.70-1.30); FREE T4 1.27 NG/DL (0.76-1.46); GLOMERULAR FILTRATION RATE > 60.0 (>42); GLUCOSE, FASTING 82 MG/DL (70-100); POTASSIUM SERUM 4.6 MEQ/L (3.5-5.1); SODIUM LEVEL 140 MEQ/L (136-145); TOTAL PROTEIN 6.9 GM/DL (6.4-8.2)
[2019-01-13 19:48] LABS: FOLATE 20.5 NG/ML; VITAMIN B12 LEVEL 670 PG/ML
[2019-01-13 19:55] LABS: ERYTHROCYTE SEDIMENTATION RATE 26 mm/hr (0-20)
== END ==
LOC: M SFHCADAM 13:37
PROVIDERS: ATTEND Physician Assistant
DX: I48.91 Unspecified atrial fibrillation (principal); E03.9 Hypothyroidism, unspecified; F03.90 Unspecified dementia, unspecified severity, without behavioral disturbance, psychotic disturbance, mood disturbance, and anxiety; E53.8 Deficiency of other specified B group vitamins; R51 Headache
CPT/HCPCS: 80053; 82607; 82746; 84439; 84443; 85025; 85652; 86140; G0463

== ENCOUNTER → 2019-02-09 | Outpatient (REF) | payer MEDICARE ==
[~2019-02-09] MED LIST changes: +D 101000 PO; +MAPA500T2 PO; +OMEP40CA97 PO; +OXYC1TAB23 PO
== END ==
LOC: M SFHCADAM 13:03
PROVIDERS: ATTEND Physician Assistant
DX: M31.6 Other giant cell arteritis (principal)

== ENCOUNTER 2019-02-16 11:20 | Day surgery (SDC) | payer MEDICARE ==
[~2019-02-16] VITALS: Ht 182.9 cm; Wt 77.6 kg
[~2019-02-16 11:20] MED LIST changes: +LR 1,000 ML IV ONE; -OXYC1TAB23 PO
[2019-02-16] MEDS ORDERED: PROPOFOL 200 MG/20 ML VIAL As Ordered ONE (12:19)
[2019-02-16] MEDS ORDERED: PROPOFOL 500 MG/50 ML VIAL As Ordered ONE (12:20)
[2019-02-16] MEDS ORDERED: MIDAZOLAM INJ 2 MG/2 ML VIAL (J2250) As Ordered ONE (12:20)
[2019-02-16] MEDS ORDERED: ONDANSETRON 4MG/2ML VIAL (J2405) As Ordered ONE (12:20)
[2019-02-16] MEDS ORDERED: dexameTHASONE 4 MG/ML 1ML VIAL (J1100) As Ordered ONE (12:20)
[2019-02-16] MEDS ORDERED: fentaNYL 100 MCG/2 ML INJECTION (J3010) As Ordered ONE (12:20)
[2019-02-16] MEDS ORDERED: LIDOCAINE 2% INJ 100 MG/5 ML SDV (FOR ANES.) As Ordered ONE (13:28)
[2019-02-16] MEDS ORDERED: KETAMINE HCL 200 MG/20 ML VIAL As Ordered ONE (13:33)
[2019-02-16] MEDS ORDERED: BUPIVACAINE/EPIN 0.5% 30 ML VIAL As Ordered ONE (13:56)
[2019-02-16] MEDS ORDERED: BACITRACIN OINT 30GM As Ordered ONE ×2 (13:56→15:35)
[2019-02-16] MEDS ORDERED: LIDOCAINE 1% SDV INJ 30 ML VIAL As Ordered ONE (14:46)
[2019-02-16] MEDS ORDERED: OXYC1TAB23 PO (16:24)
[2019-02-16] MEDS ORDERED: fentaNYL 100 MCG/2 ML INJECTION (J3010) IV PRN (16:30)
[2019-02-16] MEDS ORDERED: ONDANSETRON 4MG/2ML VIAL (J2405) IV PRN (16:30)
[2019-02-16] MEDS ORDERED: METOCLOPRAMIDE INJ 10MG/2ML VIAL (J2765) IV PRN (16:30)
[2019-02-16] MEDS ORDERED: LR 1,000 ML IV SCH (16:30)
[2019-02-16] MEDS ORDERED: oxyCODONE 5MG TAB PO PRN (16:30)
--- NOTE | 2019-02-16 16:30 | ROOPDOC ---
[facility] Report Of Operation Report of Operation DATE OF PROCEDURE: 02/16/19 PREPROCEDURE DIAGNOSES: Right temporal headache, elevated ESR. POSTPROCEDURE DIAGNOSES: Same. PROCEDURE: Right temporal artery biopsy. SURGEON: John Cook MD ANESTHESIA: Monitored anesthesia care and local. INDICATION FOR PROCEDURE: This is a very pleasant 78-year-old gentleman with significant temporal headaches, worse on the right, and an elevated ESR and concern for temporal arteritis. Risks benefits alternatives to right temporal artery biopsy were explained to the patient and his and they're agreeable to proceed. Informed consent was obtained. REPORT OF OPERATION: Patient was brought to the OR in stable condition and monitored anesthesia care and antibiotics were administered without complication. He was positioned with 45 head up and an ultrasound was used to map the right temporal artery and marked on the skin. The hair over the expected incision was clipped and the right temporal area was prepped and draped in a sterile fashion. A timeout was performed. Local anesthesia was Mr. skin and subcutaneous tissue over the right baptism and the skin knife was used to make an incision over the temporal artery. We carefully dissected down through the subcutaneous tissues Bovie cautery and sharp dissection with a met scissors. We eventually identified the temporal artery and skeletonized proximally and distally with pain the incision. He was very tortuous, and there was a large branch point which was also skeletonized. Clips in sutures were placed distally at the branch points and the distal end in the proximal and and the temporal artery was excised it was measured and found to be 8 cm in the branch was 2 cm for a total of 10 cm sent for pathology. The wound was copiously irrigated with saline. Additional local anesthesia was administered to skin and subcutaneous t issue and a Vicryl suture was used to close the deeper tissues and a running fashion and the skin was closed with nylon mattress suture. Xeroform and bacitracin were placed over the incision and the patient was allowed to awaken from anesthesia and taken to recovery in stable condition. He tolerated the procedure well. SPECIMEN: 8 cm of right temporal artery sent for pathology DRAINS: None ESTIMATED BLOOD LOSS: Approximately 25 mL. COMPLICATIONS: None. PLAN: We will see the patient back in clinic in 1 week for suture removal. Is okay for him to resume his home medications, including restarting his her alto tomorrow. Local wound care to the sutures on the right baptism, okay to shower with baby shampoo, bacitracin or triple antibiotic ointment to suture line daily. JOHN COOK MD Feb 16, 2019 16:30
[2019-02-16 17:00] VITALS: BP 139/61
--- NOTE | 2019-02-16 22:47 | ECGEPIP ---
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
== END 2019-02-16 17:09 | disposition home or self-care (01) ==
LOC: M SDC 11:20
PROVIDERS: ATTEND Surgery Vascular Surgery
DX: R51 Headache (principal); R70.0 Elevated erythrocyte sedimentation rate; I48.91 Unspecified atrial fibrillation; E03.9 Hypothyroidism, unspecified; E78.00 Pure hypercholesterolemia, unspecified; M12.9 Arthropathy, unspecified; G30.0 Alzheimer's disease with early onset; N40.0 Benign prostatic hyperplasia without lower urinary tract symptoms; R06.02 Shortness of breath; Z88.8 Allergy status to other drugs, medicaments and biological substances; Z79.899 Other long term (current) drug therapy; Z79.01 Long term (current) use of anticoagulants; Z87.891 Personal history of nicotine dependence; Z92.3 Personal history of irradiation; Z85.46 Personal history of malignant neoplasm of prostate
CPT/HCPCS: 37609; 88305; 93005; J2250; J2405; J3010

== ENCOUNTER → 2019-02-25 | Outpatient (REF) | payer MEDICARE ==
[~2019-02-25] MED LIST changes: +ALBU83IN INH; +AMMO12CR7 TOP; +AZIT-12 PO; -LR 1,000 ML IV ONE; +MUCI600T31 PO; +OXYC1TAB23 PO; +PRED10TA2 PO
== END ==
LOC: M SFHCADAM 11:38
PROVIDERS: ATTEND Physician Assistant
DX: R51 Headache (principal)
CPT/HCPCS: 85652; 86140; G0463

== ENCOUNTER 2019-03-18 14:56 | Inpatient (IN) | payer MEDICARE ==
[~2019-03-18] VITALS: Ht 185.4 cm; Wt 75.6 kg
[~2019-03-18 14:56] MED LIST changes: -ALBU83IN INH; -AMMO12CR7 TOP; -AZIT-12 PO; -MUCI600T31 PO; -PRED10TA2 PO
[2019-03-18] MEDS ORDERED: ALBU83IN INH (15:30)
[2019-03-18] MEDS ORDERED: methylPREDNISolone INJ 125 MG/2 ML VIAL (J2930) IV ONE (15:45)
--- NOTE | 2019-03-18 15:45 | REP ---
Clinical: Cough and dyspnea. Comparison: 04/21/2018. Findings: Mediastinum and cardiac silhouette stable. Lung león demonstrate COPD/emphysematous disease along with scattered fibrosis and scarring. No obvious consolidation or effusion. No pneumothorax. Skeletal structures stable. Impression: Chronic stable changes. No acute cardiopulmonary process appreciated. Electronically Signed by Jordi Wagner MD 03/18/2019 03:37 P
[2019-03-18] MEDS: IPRATROPIUM 0.5MG/ALBUTEROL 2.5MG INH SOL UD 3ML (DUONEB)(J7620) NEB SCH ×3 (15:46→16:30)
[2019-03-18 15:47] LABS: INR 1.03; PROTHROMBIN TIME 13.2 SECONDS (11.8-14.0)
[2019-03-18 16:12] LABS: BASO % 0.2 % (0.0-1.0); EOS % 0.1 % (0.0-3.0); HEMATOCRIT 46.1 % (42.0-52.0); LYMPH # 1.4 10^3/uL (1.5-5.0); LYMPH % 7.5 % (24.0-44.0); MEAN CORPUSCULAR HEMOGLOBIN 31.7 pg (27.0-33.0); MEAN CORPUSCULAR HGB CONC 32.5 g/dl (32.0-36.5); MEAN CORPUSCULAR VOLUME 97.5 fl (80.0-96.0); MONO # 0.7 10^3/uL (0.0-0.8); NEUTROPHILS # 16.2 10^3/uL (1.5-8.5); NEUTROPHILS % 87.8 % (36.0-66.0); PLATELET COUNT, AUTOMATED 300 10^3/uL (150-450); RED BLOOD COUNT 4.73 10^6/uL (4.30-6.10); WHITE BLOOD COUNT 18.4 10^3/uL (4.0-10.0)
[2019-03-18 16:14] LABS: ALBUMIN 3.2 GM/DL (3.2-5.2); ALT/SGPT 26 U/L (12-78); BILIRUBIN,DIRECT 0.2 MG/DL (0.0-0.2); BLOOD UREA NITROGEN 11 MG/DL (7-18); CALCIUM LEVEL 9.1 MG/DL (8.8-10.2); CARBON DIOXIDE LEVEL 32 MEQ/L (21-32); CHLORIDE LEVEL 98 MEQ/L (98-107); CK-MB VALUE MASS 1.1 NG/ML (<3.6); CPK CREATINE PHOSPHOKINASE 48 U/L (39-308); CREATININE FOR GFR 0.84 MG/DL (0.70-1.30); GLOMERULAR FILTRATION RATE > 60.0 (>42); GLUCOSE, FASTING 134 MG/DL (70-100); MB/CK RELATIVE INDEX 2.29 (< OR =4); NT-PRO BNP 124 PG/ML (<450); POTASSIUM SERUM 4.8 MEQ/L (3.5-5.1); SODIUM LEVEL 136 MEQ/L (136-145); TOTAL PROTEIN 6.8 GM/DL (6.4-8.2); TROPONIN I < 0.02 NG/ML (< 0.10)
[2019-03-18] MEDS ORDERED: ISOVUE-370 76% 100ML VIAL (Q9967) As Ordered ONE (16:26)
--- NOTE | 2019-03-18 16:31 | ECGEPIP ---
[facility] - ED Test Date: 2019-03-18 Pat Name: KALIA PADILLA Department: Room: - Gender: Male Cyber [employer]: PMO : 1940 Requested By: Vilma Penaloza Order Number: [id number] Reading MD: Vilma Penaloza Measurements Intervals [place] Rate: 108 P: [place]: 0 QRS: -63 QRSD: 122 T: 62 QT: 332 QTc: 445 Interpretive Statements SINUS TACHYCARDIA PACS baseline artifact may affect interpretation RIGHT BUNDLE BRANCH BLOCK LEFT ANTERIOR FASCICULAR BLOCK INCREASED RATE/ECTOPY 02/16/19 Electronically Signed on 03-18-2019 16:31:25 EST by Vilma Penaloza
--- NOTE | 2019-03-18 17:07 | REP ---
Clinical: Acute chest pain and shortness of breath. Comparison: 11/18/2017 . Technique: Axial contrast enhanced images from the thoracic inlet to the upper abdomen using 100 ml Isovue 370 intravenous contrast material with coronal and sagittal re-formations. Findings: Satisfactory enhancement of the pulmonary vasculature is achieved and no filling defects are identified to suggest pulmonary embolus. Thoracic aorta is normal caliber without aneurysm or dissection. Heart and pericardium are normal. Lung león demonstrate moderate/advanced emphysematous changes with scattered scarring and fibrosis. Superimposed scattered reticulonodular opacities are appreciated bilaterally including small chronic cavitary lesion in the posterior right lower lobe and small areas of consolidation/soft tissue in the periphery of the right upper lobe (image 49), left upper lobe (image 23), and right base. No effusion. No pneumothorax. Nonspecific mediastinal and hilar lymph nodes. Osseous structures demonstrate age-related degenerative changes. Limited upper abdomen demonstrates normal bilateral adrenal glands. Impression: 1. No evidence for pulmonary embolus. 2. Chronic emphysematous disease. 3. Scattered superimposed bilateral reticulonodular densities and small areas of consolidation similar to prior examination although somewhat increased and varied in distribution. Differential diagnosis includes multifocal pneumonia / pneumonitis, septic emboli, and metastatic disease although less likely cannot be excluded. Electronically Signed by Jordi Wagner MD 03/18/2019 04:57 P
[2019-03-18] MEDS ORDERED: cefTRIAXone SOD 2 GM in D5W MINI-BAG PLUS 50 ML IV ONE (17:15)
[2019-03-18] MEDS ORDERED: AMMO12CR7 TOP (17:34)
[2019-03-18] MEDS ORDERED: IPRATROPIUM 0.5MG/ALBUTEROL 2.5MG INH SOL UD 3ML (DUONEB)(J7620) INH PRN (18:45)
[2019-03-18] MEDS ORDERED: LACTIC ACID 12% LOTION 225 GM BTL TOP PRN (18:45)
[2019-03-18] MEDS ORDERED: ACETAMINOPHEN TAB 650MG DOSE (2X325MG) PO PRN (18:45)
[2019-03-18] MEDS ORDERED: ALBUTEROL SULFATE 2.5 MG/0.5 ML INH NEB SOLN INH PRN (19:15)
[2019-03-18 20:00] VITALS: O2SAT 96
[2019-03-18] MEDS ORDERED: AZITHROMYCIN 250 MG TAB PO ONE (20:00)
[2019-03-18 20:30] VITALS: BP 135/86
[2019-03-18 21:00] VITALS: O2SAT 96
[2019-03-18] MEDS: RIVAROXABAN 15 MG TAB (XARELTO) PO SCH (21:28)
[2019-03-18] MEDS: predniSONE 20 MG TAB PO SCH (21:28)
[2019-03-18] MEDS: TAMSULOSIN 0.4 MG CAP PO SCH (21:28)
[2019-03-18 22:00] VITALS: O2SAT 96
[2019-03-18 23:00] VITALS: O2SAT 97
[2019-03-18 23:59] VITALS: BP 131/63
[2019-03-19] VITALS (21 sets, daily range): BP systolic 120–162; BP diastolic 56–88; O2SAT 94–99
[2019-03-19] MEDS: IPRATROPIUM 0.5MG/ALBUTEROL 2.5MG INH SOL UD 3ML (DUONEB)(J7620) INH SCH ×8 (00:25→23:25)
[2019-03-19] MEDS: ADVAIR HFA 230/21MCG INHALER INH SCH ×3 (00:25→20:00)
[2019-03-19 04:12] LABS: HEMATOCRIT 45.3 % (42.0-52.0); HEMOGLOBIN 14.5 g/dl (13.5-17.5); MEAN CORPUSCULAR HEMOGLOBIN 30.9 pg (27.0-33.0); MEAN CORPUSCULAR VOLUME 96.4 fl (80.0-96.0); PLATELET COUNT, AUTOMATED 288 10^3/uL (150-450); WHITE BLOOD COUNT 14.6 10^3/uL (4.0-10.0)
[2019-03-19 04:29] LABS: BLOOD UREA NITROGEN 13 MG/DL (7-18); CALCIUM LEVEL 9.2 MG/DL (8.8-10.2); CARBON DIOXIDE LEVEL 29 MEQ/L (21-32); CHLORIDE LEVEL 102 MEQ/L (98-107); CREATININE FOR GFR 0.79 MG/DL (0.70-1.30); GLOMERULAR FILTRATION RATE > 60.0 (>42); GLUCOSE, FASTING 166 MG/DL (70-100); POTASSIUM SERUM 4.5 MEQ/L (3.5-5.1); SODIUM LEVEL 137 MEQ/L (136-145)
[2019-03-19] MEDS: LEVOTHYROXINE 75MCG TABLET (0.075MG) PO SCH (05:09)
--- NOTE | 2019-03-19 07:42 | HPE ---
DATE OF ADMISSION: 03/18/2019 PRIMARY CARE PROVIDER: Ms. Trinidad uF CHIEF COMPLAINT: Worsening shortness of breath. HISTORY OF PRESENT ILLNESS: Most of the history is obtained by the as the patient has Alzheimer's dementia. Per the the patient went up to go to the bathroom around 1:15-1:30. When he got back to his chair and living and he almost passed out. The noticed that he was struggling more to breathe. She has also noticed increased mucous production, though there is been no change to the color. She is unsure of how long he has had increased mucous production, but thinks it may have been at least a week. There has been no blood in his sputum, and it has remained a light fatima color. He does state that leaning forward helps. He does not have renal orthopnea, his states that he is able to lay flat at night though this morning he did have two episode of paroxysmal nocturnal dyspnea, where he woke up gasping for air at 3:00 a.m. and 5:00 a.m. He is taking his respiratory medications with minimal improvement in his symptoms. His also states that normally he complains that it is cold that has been complaining that it is been hot today. He did get his flu vaccine last year. Per the medical record he received Pneumovax in 2011. And he did get a dose of Prevnar last year. He has multiple children, grandchildren, and great-grandchildren that have been sick, however, his states that none of them have been around him recently. He denies wheezes, but does state that he does have some chest pain around the anterior and lateral sides of his inferior chest when he inhales deeply and has been diagnosed with pleurisy in the past. Periodically he will have palpation but he also does have a past medical history of atrial fibrillation that is naturally rate controlled. 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 No longer follows with urology. COPD/ emphysema. Most recent FEV-1/FVC ratio was 38% in April of 2018. He no longer follows with pulmonology. He wears 2 liters via nasal cannula as needed during the day and wears a consistently at night. Osteoarthritis. Hypothyroidism on Synthroid. History of an abnormal stress test resulting in a cardiac catheterization at [facility] in 1999. History of hyperlipidemia, not on statin therapy. History of vitamin D deficiency, not on vitamin D. History of essential hypertension, no longer on blood pressure medications. Atrial fibrillation, on Xarelto for anticoagulation, no medical therapy for rate control. Alzheimer's dementia Vitamin B12 deficiency. Folate deficiency, no folate is noted on his medication list. Right-sided temperature temporal pain for several months, temporal artery biopsy negative, has been on prednisone since January 14. SURGICAL HISTORY: Tonsillectomy and adenoidectomy in 1950, prostate implantation of radioactive seeds in 2010, myringotomy tube placement left ear, cardiac catheterization [facility] 1999, colonoscopy with polyp resection (tubulovillous adenoma) Dr. 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 FAMILY HISTORY: His father at 83 years from Hodgkin's disease lymphoma. Mother at 88 years from old age. He has one brother with prostate cancer and another brother and sister who are still alive but he does not know if they have any medical problems. He has one son who is alive and had a deep venous thrombosis (DVT) and one daughter for which she thinks she is relatively healthy. SOCIAL HISTORY: He lives at home with his and he is accompanied today by both his and his daughter (who has laryngitis). He is a former smoker, he smoked for 25 years and he quit about 20-25 years ago. He longer smokes. He does have alcohol occasionally and normally in the form of a beer. Denies any illicit drug use. REVIEW OF SYSTEMS: Constitutional: Positive for subjective fevers. Denies chills, weight changes or changes to appetite. HEENT: No vision changes but does admit to right-sided temporal headache. Denies double vision, floaters or feeling like a curtain got pulled down, runny nose, epistaxis, tinnitus, sore throat or odynophagia. Cardiovascular: Positive for palpitations and two episodes of paroxysmal nocturnal dyspnea as described above. Denies any edema, orthopnea or claudication symptoms. Respiratory: Positive for a cough with an increased amount of sputum production as well as history of pleurisy. Denies any wheezes, hemoptysis or changes to his sputum culture. Gastrointestinal: Denies abdominal pain, difficulty swallowing, indigestion, cramping, loss of appetite, nausea, vomiting, constipation, obstipation, hematemesis, hematochezia, melena or tenesmus. He does admit to intermittent diarrhea but this has been chronic. Genitourinary: Positive for a history of prostate cancer status post radioactive seeding. Denies dysuria, hematuria, nocturia or polyuria, hesitancy or terminal dribbling. Musculoskeletal: Denies any new joint swelling, decreased range of motion or arthritic stiffness. Integumentary: Denies any pruritus, rashes striatal lesions or wounds. Neuro: Denies any changes to sight, smell, hearing, taste, history of seizures, anesthesias, paresthesias or weakness. Does admit to a history of what is presumably Alzheimer's dementia. Psychiatric: Denies any new depression, anxiety, paranoia, anhedonia or episodes of marie. Endocrine: Denies tremor, visual disturbances, constipation, dry skin, polydipsia, polyuria, polyphagia or chronic persistent diarrhea. Hematologic: Denies any anemia, purpura or petechia. He is on Xarelto. Lymphatic: Denies any new lumps or bumps anywhere. PHYSICAL EXAMINATION: Vitals: Temperature 99.8, pulse is 92-102 and irregular, respiratory rate is 36 but unlabored. Blood pressure is 138/63. He is 93% on a Venturi mask running with an FiO2 of 0.28. General: This is an elderly male who was sitting up in the stretcher in the emergency department, he does not appear to be in any acute distress. HEENT: Head is atraumatic, normocephalic. Eyes are clear and pupils are pinpoint but reactive to light. Posterior pharynx is free of erythema or exudates. Uvula is midline. Tongue is midline. The patient is edentulous. Neck: No jugular venous distention (JVD). No lymphadenopathy. No masses, supple. Chest: No supraclavicular adenopathy is appreciated, symmetric excursion. He does use some accessory muscles to breathe. Lungs: Breath sounds are faint and very very difficult to hear, however, there is no tactile fremitus noted, nor egophony in all of the lung león. Heart: Heart sounds are also very distant and difficult to appreciate but there is no audible pericardial rub, murmurs or gallops. Pulse is mildly thready and irregular. Point of maximum impulse (PMI) does not appear to be displaced. There is no jugular venous distention (JVD). Capillary refill is 2+ in all four extremities. Abdomen: Soft, nontender, nondistended. Normoactive bowel sounds. Extremities: No clubbing, cyanosis or edema. Neuro: The patient is alert and oriented to himself and that he is in the hospital, he is unsure what the date is. He has full sensation in all four extremities. Muscle strength and reflexes were not tested. Psych: Mood is appropriate. Affect is full. LABORATORY DATA: CBC: WBC 18.4, hemoglobin 15.0, hematocrit 46.1, platelets 300, differential 88% neutrophils 8% lymphocytes. Chemistry: Electrolytes are in balance with a sodium of 136, potassium of 4.8, chloride 98, carbon dioxide 32. Renal function is stable with a BUN of 11 and a creatinine of 0.84. Glucose is 134, lactic acid is 1.3, calcium 9.1, total bili 1.0, direct bili 0.2, AST 19, ALT 26, alkaline phosphatase 72. Total creatinine kinase 48, CK-MB 1.1, troponin less than 0.02. Pro-BNP 124, total protein 6.80, albumin 3.2. TSH within normal limits at 1.23. Coagulation: PT 13.2, INR 1.03. ABG shows a chronic respiratory acidosis with metabolic compensation with a pH of 7.43 and pO2 of 277, pCO2 of 47 and ThCo3 of 31. EKG: Compared to 02/16/2019 shows atrial fibrillation with a rapid ventricular response as well as a right bundle branch block and a left anterior fascicular block. No ST changes appreciated, however, the baseline does tend to wander quite a bit. MICROBIOLOGY: Blood cultures times two pending. Respiratory virus panel is negative. IMAGING: Chest x-ray shows chronic stable changes, no acute cardiopulmonary process appreciated. Lung león are demonstrating COPD/emphysematous disease along with scattered fibrosis and scarring, no pneumothorax, skeletal structures are stable and no obvious consolidation or effusion. CT angiography of the chest shows no filling defects to suggest pulmonary embolus. Lung león again demonstrate moderate to advanced emphysema changes with scattered scarring and fibrosis. Superimposed scattered reticulonodular opacities are appreciated bilaterally including small chronic cavitary lesion in the posterior right lobe and small areas of consolidation/soft tissue in the periphery of the right upper lobe on image 49, the left upper lobe on image 23 in right base. There is no effusion or pneumothorax. Nonspecific mediastinal and hilar lymph nodes. Per radiology the differential diagnosis would include multifocal pneumonia, pneumonitis, septic emboli and metastatic disease. ASSESSMENT: 1. This is a 78-year-old male who presented to the emergency department complaining of acute worsening shortness of breath, community acquired pneumonia versus COPD exacerbation versus worsening of his overall lung disease. 2. Shortness of breath. At the moment we will treat him for community-acquired pneumonia which is defended by a leukocytosis of 18,000, and subjective fevers. We will give him IV Rocephin and cover for atypicals with azithromycin. He does have a history of prostate cancer, and the CT of the chest showed new consolidations in multiple lobes that cross the midline so metastasis could also be reasonable though would not explained his acutely worsening lung function. Pro-BNP was not elevated, so heart failure is less likely although he did have two episodes of paroxysmal nocturnal dyspnea this morning per his . He has also been on a steroid taper for a supposed temporal arteritis, with a negative temporal artery biopsy. But has been on a taper recently. He is supposed to be starting 10 mg of prednisone tomorrow for a week. His ABG demonstrated chronic respiratory acidosis with metabolic compensation and it looks like he has a chronic CO2 retainer. We will increase his prednisone to 40 mg daily for 5 days to treat both potential COPD exacerbation as well as community acquired pneumonia. 3. COPD. Increase prednisone to 40 mg daily. Continue with Spiriva HandiHaler daily as well as her Advair HFA twice a day. DuoNebs every 4 hours inhaled with albuterol nebulizers every 2 hours as needed. 4. Atrial fibrillation. Continue anticoagulation with Xarelto. No telemetry needed as he already has a diagnosis of atrial fibrillation. He is biologically rate controlled. 5. Gastroesophageal reflux disease (GERD), continue home Prilosec 40 mg by mouth daily. 6. Hypothyroidism, continue home Synthroid 75 mcg daily. 7. History of prostate cancer with some residual hyperplasia status post radioactive seeding. Continue Flomax. 8. Tylenol for pain or fever. 9. Deep venous thrombosis (DVT) prophylaxis. Continue home Xarelto. Code status: The patient is a DO NOT RESUSCITATE with trial of intubation and mechanical ventilation as well as trial of noninvasive ventilation. His healthcare proxy is his , Naomy Moralez, who can be reached at cell phone number , or at home at . Endorsed to Dr Patel. ATTENDING ATTESTATION: I have personally evaluated and examined the patient. Discussed with residents and student regarding plan of care and agree with the above assessment and plan. ASHA
[2019-03-19] MEDS: TIOTROPIUM INHALER/CAPSULE (SPIRIVA) INH SCH (07:44)
[2019-03-19] MEDS: OMEPRAZOLE 20 MG CAP PO SCH (08:10)
[2019-03-19] MEDS: predniSONE 20 MG TAB PO SCH (08:10)
[2019-03-19] MEDS: AZITHROMYCIN 250 MG TAB PO SCH (13:00)
--- NOTE | 2019-03-19 15:59 | IPNPDOC ---
Subjective Date Seen The patient was seen on 03/19/19. Subjective Chief Complaint/HPI Mr. Moralez reports that he feels pretty good today. He has no complaints other than a "catch" on his left anterior chest wall near the costal margin when he takes a deep breath. Nursing reports that his oxygen saturations have been maintained steady on 2 L of oxygen via nasal cannula which is his home dose. General: Reports: Normal Appetite Constitutional: Denies: Chills, Fever Pulmonary: Reports: Pleuritic Chest Pain Cardiovascular: Denies: Chest Pain, Palpitations Gastrointestinal: Denies: Nausea, Vomiting Objective Physical Examination General Exam: Positive: Alert, Cooperative (he is laying in bed with the head of his bed elevated talking to the nurse when I entered the room), No Acute Distress Eye Exam: Positive: Conjunctiva & lids normal; Negative: Sclera icteric ENT Exam: Positive: Mucous membr. moist/pink Neck Exam: Negative: Lymphadenopathy Chest Exam: Positive: Clear to auscultation, Diminished, Other (increased AP diameter of the chest wall. The expiratory phase is prolonged.); Negative: Wheezing Heart Exam: Positive: Rate Normal, Normal S1, Normal S2; Negative: Murmurs Abdomen Exam: Positive: Normal bowel sounds, Soft; Negative: Tenderness Extremity Exam: Negative: Edema Neuro Exam: Positive: Normal Speech Psych Exam: Positive: Mood NL Assessment /Plan Problems (1) Acute and chronic respiratory failure with hypoxia Status: Acute Response to Treatment: Improving Discussed With: Nurse, Patient Problem Specific Plan: Monitor Clinically Problem Text: Today he is maintaining his oxygen saturations reasonably on his home oxygen dose of 2 L/m. (2) Pneumonia Status: Acute Response to Treatment: Improving Discussed With: Nurse, Patient Problem Specific Plan: Monitor Clinically, Repeat Labs Problem Text: He is currently treated for community-acquired pneumonia Rocephin and azithromycin. If his white count continues to trend down and he does well, I will likely switch him to oral medications tomorrow. (3) COPD exacerbation Status: Acute Response to Treatment: Improving Discussed With: Nurse, Patient Problem Specific Plan: Monitor Clinically Problem Text: He has diminished breath sounds, but I suspect this is his base line. Do not hear any wheezing today. He is on a 5 day 40 mg pulse of prednisone. After that he should return to the 10 mg daily he was taking for treatment of temporal arteritis prior to this hospitalization. (4) Temporal arteritis Response to Treatment: Controlled Problem Text: He was nearing the end of the treatment for temporal arteritis when he was admitted. He had 7 days of 10 mg prednisone left when he was admitted. Other stable now be on 40 mg, but he should return to 10 mg for the remaining 2 days before tapering off. (5) Atrial fibrillation Status: Chronic Problem Specific Plan: Monitor Clinically Problem Text: On Xarelto for anticoagulation. Plan/VTE VTE Prophylaxis Ordered?: Yes (Xarelto) VS, I&O, 24H, Fishbone Vital Signs/I&O Vital Signs Date Time Temp Pulse Resp B/P (MAP) Pulse Ox O2 Delivery O2 Flow Rate FiO2 03/19/19 15:45 2.0 03/19/19 15:00 95 Nasal Cannula 03/19/19 12:00 97.8 94 18 146/82 (103) 03/18/19 19:04 28 I&O- Last 24 Hours up to 6 AM 03/19/19 06:00 Intake Total 470 ml Output Total 555 ml Balance -85 ml Laboratory Data 24H LABS Laboratory Tests 2 03/18/19 16:02: Immature Granulocyte % (Auto) 0.4, Neutrophils (%) (Auto) 87.8H, Lymphocytes (%) (Auto) 7.5L, Monocytes (%) (Auto) 4.0, Eosinophils (%) (Auto) 0.1, Basophils (%) (Auto) 0.2, Neutrophils # (Auto) 16.2H, Lymphocytes # (Auto) 1.4L, Monocytes # (Auto) 0.7, Eosinophils # (Auto) 0.0, Basophils # (Auto) 0.0, Nucleated Red Blood Cells % (auto) 0.0 03/19/19 03:59: Nucleated Red Blood Cells % (auto) 0.0, Anion Gap 6L, Glomerular Filtration Rate > 60.0, Calcium Level 9.2 CBC/BMP Laboratory Tests 03/18/19 16:02 03/19/19 03:59 Microbiology Microbiology 03/18/19 Respiratory Virus Panel (PCR) ([facility]) - Final, Complete 03/18/19 Blood Culture - Preliminary, Resulted No growth after 24 hours . All specim... 03/18/19 Blood Culture - Preliminary, Resulted No growth after 24 hours . All specim... Rogerio Patel MD Mar 19, 2019 3:59 pm
[2019-03-19] MEDS: cefTRIAXone SOD 2 GM in D5W MINI-BAG PLUS 50 ML IV SCH (16:14)
[2019-03-19] MEDS: RIVAROXABAN 15 MG TAB (XARELTO) PO SCH (17:04)
[2019-03-19] MEDS: TAMSULOSIN 0.4 MG CAP PO SCH (19:52)
[2019-03-20] VITALS (14 sets, daily range): BP systolic 133–154; BP diastolic 64–70; O2SAT 91–98
[2019-03-20] MEDS: IPRATROPIUM 0.5MG/ALBUTEROL 2.5MG INH SOL UD 3ML (DUONEB)(J7620) INH SCH ×6 (04:00→23:33)
[2019-03-20] MEDS: LEVOTHYROXINE 75MCG TABLET (0.075MG) PO SCH (05:58)
[2019-03-20] MEDS: ADVAIR HFA 230/21MCG INHALER INH SCH ×2 (07:43→19:48)
[2019-03-20] MEDS: TIOTROPIUM INHALER/CAPSULE (SPIRIVA) INH SCH (07:44)
[2019-03-20] MEDS: OMEPRAZOLE 20 MG CAP PO SCH (09:28)
[2019-03-20] MEDS: predniSONE 20 MG TAB PO SCH (09:28)
--- NOTE | 2019-03-20 13:04 | IPNPDOC ---
Subjective Date Seen The patient was seen on 03/20/19. Subjective Chief Complaint/HPI Felipe reports that his breathing is getting a little better today, but he was surprised how dyspenic he got just by getting up to walk to the bathroom. The pain that is over his L anterior chest wall seems to be essentially resolved. His family wonders why he isn't coughing up as much phlegm as he was at home. General: Reports: Normal Appetite Constitutional: Denies: Chills, Fever Pulmonary: Reports: Dyspnea; Denies: Cough, Pleuritic Chest Pain Cardiovascular: Denies: Chest Pain, Edema Gastrointestinal: Denies: Nausea, Vomiting Psych: Reports: Memory Issues Objective Physical Examination General Exam: Positive: Alert, Cooperative (he is laying in bed with the head of his bed elevated talking to the his family when I entered the room), No Acute Distress Eye Exam: Positive: Conjunctiva & lids normal; Negative: Sclera icteric ENT Exam: Positive: Mucous membr. moist/pink Neck Exam: Negative: Lymphadenopathy Chest Exam: Positive: Clear to auscultation, Diminished, Other (increased AP diameter of the chest wall. The expiratory phase is prolonged.); Negative: Wheezing Heart Exam: Positive: Rate Normal, Normal S1, Normal S2; Negative: Murmurs Abdomen Exam: Positive: Normal bowel sounds, Soft; Negative: Tenderness Extremity Exam: Negative: Edema Neuro Exam: Positive: Normal Speech Psych Exam: Positive: Mood NL; Negative: Memory Intact Assessment /Plan Problems (1) Acute and chronic respiratory failure with hypoxia Status: Acute Response to Treatment: Improving Discussed With: Nurse, Patient Problem Specific Plan: Monitor Clinically Problem Text: He is maintaining his oxygen saturations reasonably on his home oxygen dose of 2 L/m. He is noticing that he is dyspenic when he moves around his room, but he is moving around his room and this is an improvement for him. I counseled him and his family on the extended (can be up to 6 weeks) expected healing time for lung infections/inflammation. (2) Pneumonia Status: Acute Response to Treatment: Improving Discussed With: Nurse, Patient Problem Specific Plan: Monitor Clinically, Repeat Labs Problem Text: He is currently treated for community-acquired pneumonia Rocephin and azithromycin. I changed him to oral cefdinir as well as maintaining the oral azithromycin and prednisone starting tomorrow morning. This is so that he will be ready for discharge when appropriate. (3) Atrial fibrillation Status: Chronic Problem Specific Plan: Monitor Clinically Problem Text: On Xarelto for anticoagulation. (4) Temporal arteritis Response to Treatment: Controlled Problem Text: He was nearing the end of the treatment for temporal arteritis when he was admitted. He had 7 days of 10 mg prednisone left when he was admitted. Other stable now be on 40 mg, but he should return to 10 mg for the remaining 2 days before tapering off. (5) COPD exacerbation Onset Date: 03/23/2014 Status: Resolved Response to Treatment: Improving Discussed With: Nurse, Patient Problem Specific Plan: Monitor Clinically Problem Text: He has diminished breath sounds, but I suspect this is his baseline. Do not hear any wheezing today. He is on a 5 day 40 mg pulse of prednisone. After that he should return to the 10 mg daily he was taking for treatment of temporal arteritis prior to this hospitalization. Plan/VTE VTE Prophylaxis Ordered?: Yes (Xarelto) Plan Therapy: PT, Home Safety Eval (tomorrow) VS, I&O, 24H, Fishbone Vital Signs/I&O Vital Signs Date Time Temp Pulse Resp B/P (MAP) Pulse Ox O2 Delivery O2 Flow Rate FiO2 03/20/19 12:00 97.4 93 18 135/69 (91) 93 Room Air 03/20/19 12:00 0.0 03/18/19 19:04 28 I&O- Last 24 Hours up to 6 AM 03/20/19 06:00 Intake Total 470 ml Output Total 900 ml Balance -430 ml Laboratory Data Microbiology Microbiology 03/18/19 Respiratory Virus Panel (PCR) ([facility]) - Final, Complete 03/18/19 Blood Culture - Preliminary, Resulted No growth after 24 hours . All specim... 03/18/19 Blood Culture - Preliminary, Resulted No growth after 24 hours . All specim... Rogerio Patel MD Mar 20, 2019 1:04 pm
[2019-03-20 13:27] LABS: BASO % 0.1 % (0.0-1.0); HEMATOCRIT 44.2 % (42.0-52.0); HEMOGLOBIN 14.3 g/dl (13.5-17.5); LYMPH # 0.7 10^3/uL (1.5-5.0); LYMPH % 4.9 % (24.0-44.0); MEAN CORPUSCULAR HEMOGLOBIN 31.2 pg (27.0-33.0); MEAN CORPUSCULAR HGB CONC 32.4 g/dl (32.0-36.5); MEAN CORPUSCULAR VOLUME 96.5 fl (80.0-96.0); MONO # 0.4 10^3/uL (0.0-0.8); MONO % 2.7 % (0.0-5.0); NEUTROPHILS # 12.8 10^3/uL (1.5-8.5); NEUTROPHILS % 91.4 % (36.0-66.0); PLATELET COUNT, AUTOMATED 321 10^3/uL (150-450); RED BLOOD COUNT 4.58 10^6/uL (4.30-6.10); WHITE BLOOD COUNT 14.1 10^3/uL (4.0-10.0)
[2019-03-20] MEDS: AZITHROMYCIN 250 MG TAB PO SCH (13:33)
[2019-03-20] MEDS: guaiFENesin ER 600 MG TAB PO SCH ×2 (13:35→20:03)
[2019-03-20] MEDS: RIVAROXABAN 15 MG TAB (XARELTO) PO SCH (17:30)
[2019-03-20] MEDS: cefTRIAXone SOD 2 GM in D5W MINI-BAG PLUS 50 ML IV SCH (17:31)
[2019-03-20] MEDS: TAMSULOSIN 0.4 MG CAP PO SCH (20:03)
[2019-03-21] VITALS (15 sets, daily range): BP systolic 138–160; BP diastolic 74–96; O2SAT 92–97
[2019-03-21] MEDS: IPRATROPIUM 0.5MG/ALBUTEROL 2.5MG INH SOL UD 3ML (DUONEB)(J7620) INH SCH ×3 (04:00→11:11)
[2019-03-21 05:12] LABS: BASO % 0.1 % (0.0-1.0); EOS % 0.2 % (0.0-3.0); HEMATOCRIT 42.7 % (42.0-52.0); LYMPH # 1.5 10^3/uL (1.5-5.0); LYMPH % 13.5 % (24.0-44.0); MEAN CORPUSCULAR HEMOGLOBIN 31.5 pg (27.0-33.0); MEAN CORPUSCULAR HGB CONC 32.8 g/dl (32.0-36.5); MONO # 0.6 10^3/uL (0.0-0.8); MONO % 5.5 % (0.0-5.0); NEUTROPHILS # 8.7 10^3/uL (1.5-8.5); NEUTROPHILS % 80.1 % (36.0-66.0); PLATELET COUNT, AUTOMATED 314 10^3/uL (150-450); RED BLOOD COUNT 4.45 10^6/uL (4.30-6.10); WHITE BLOOD COUNT 10.9 10^3/uL (4.0-10.0)
[2019-03-21 05:33] LABS: BLOOD UREA NITROGEN 15 MG/DL (7-18); CALCIUM LEVEL 8.8 MG/DL (8.8-10.2); CARBON DIOXIDE LEVEL 30 MEQ/L (21-32); CHLORIDE LEVEL 101 MEQ/L (98-107); CREATININE FOR GFR 0.71 MG/DL (0.70-1.30); GLOMERULAR FILTRATION RATE > 60.0 (>42); GLUCOSE, FASTING 109 MG/DL (70-100); POTASSIUM SERUM 3.9 MEQ/L (3.5-5.1); SODIUM LEVEL 137 MEQ/L (136-145)
[2019-03-21] MEDS: LEVOTHYROXINE 75MCG TABLET (0.075MG) PO SCH (05:42)
[2019-03-21] MEDS: TIOTROPIUM INHALER/CAPSULE (SPIRIVA) INH SCH (07:22)
[2019-03-21] MEDS: ADVAIR HFA 230/21MCG INHALER INH SCH (07:22)
[2019-03-21] MEDS ORDERED: CEFDINIR 300 MG CAP (OMNICEF) PO SCH (09:00)
[2019-03-21] MEDS: predniSONE 20 MG TAB PO SCH (09:14)
[2019-03-21] MEDS: guaiFENesin ER 600 MG TAB PO SCH (09:14)
[2019-03-21] MEDS: OMEPRAZOLE 20 MG CAP PO SCH (09:15)
[2019-03-21] MEDS ORDERED: SLF 3 ML SYR IV PRN (10:30)
[2019-03-21] MEDS ORDERED: CEFD300CAP PO (11:59)
[2019-03-21] MEDS ORDERED: MUCI600T31 PO (11:59)
[2019-03-21] MEDS ORDERED: PRED10TA2 PO (11:59)
[2019-03-21] MEDS ORDERED: AZIT-12 PO (11:59)
[2019-03-21] MEDS: AZITHROMYCIN 250 MG TAB PO SCH (12:30)
--- NOTE | 2019-03-21 13:11 | DSES ---
DATE OF ADMISSION: 03/18/2019 DATE OF DISCHARGE: 03/21/2019 PRIMARY CARE PROVIDER: ZITA Charles ATTENDING TODAY: Dr. Louie Sanchez HISTORY: This is a 78-year-old male patient who was admitted over the weekend by Rosie Jack with worsening shortness of breath. The patient has a history of dementia. The noted that the patient got up to go to the bathroom and when he got back to his chair and living room, he almost passed out. She noted that he was struggling more to breathe and coughing more with increased mucous production, although unsure if there had been a change in color. Symptoms had been present for at least 1 week and therefore she decided to present to the emergency room. On evaluation in the emergency room, the patient was diagnosed with likely community acquire pneumonia with a mild chronic obstructive pulmonary disease (COPD) exacerbation. He was started on Rocephin and azithromycin, as well as steroids. These have been transitioned to oral medications and the patient seems to be tolerating these well. His steroids are being tapered. The patient's respiratory status has improved. He is mobile and moving about the room independently. His family has been attentive and at bedside. He did have an argument yesterday with a male nurse, who during this argument the patient threatened to return home and shoot himself with a shotgun. This morning upon my evaluation, I did discuss this with the patient. He denied any recall in regard to making this threat. He denies any history of suicidal ideation or a plan in the past. He does acknowledge that there are shotguns in his home. His brother and are present and the patient becomes tearful during this discussion. When prompted as to why he is crying, he says "because it is upsetting to hear that he made a threat like that." His states that this is out of character for him, as does his brother. His brother acknowledges that they learned of this upon arriving at the hospital this morning and had already made a plan to remove any guns from the home as they feel as though since he is no longer using them and with his dementia and made a threat like he did that these should not be in the home. He plans on doing this upon returning home later today. The patient was in agreement and supportive of this. Did not seem to be upset at all by his brother talking about removing his weapons and ammunition from the home. At this point, the patient denies any suicidal ideation, denies any intention or plan. He denies any sadness or depression. He does have dementia and according to his family they feel as though this is at baseline, they do not feel as though he is a threat to himself or others and do not have any concerns in regard to returning home. He also does have a family who is attentive and recognized the need for removing any weapons from the home without prompting and I encouraged them to move forward with their plan. DISCHARGE DIAGNOSES: 1. Community acquired pneumonia. 2. Acute on chronic respiratory failure with hypoxia. 3. Atrial fibrillation. 4. Temporal arteritis. 5. Chronic obstructive pulmonary disease (COPD) exacerbation. DISCHARGE MEDICATIONS: - azithromycin 250 mg daily for 3 additional days - Cefdinir 300 mg twice a day for 8 days - guaifenesin 1200 mg by mouth twice a day for 10 days - prednisone 10 mg taper, 30 mg daily for 3 days, 20 mg daily for 3 days, 10 mg daily for 3 days - acetaminophen 500 mg every 4 hours as needed for pain or fever - albuterol nebulizer inhaled as needed for shortness of breath - emollient lactate topically to dry skin of the feet daily - vitamin D 1000 units daily - Combivent Respimat 20/100 one puff four times daily as needed for shortness of breath - levothyroxine 75 mcg daily - omeprazole 40 mg daily - Xarelto 15 mg daily - Advair 500/50 one puff twice a day - Flomax 0.4 mg daily - Spiriva 18 mcg inhaled daily DISCHARGE PLAN: Followup with his primary care provider in 1 week. Activity should be as tolerated. His diet is no added salt. edited: 03/22/2019 0723 luis manuel BARRY
[2019-03-21] MEDS ORDERED: SLF 3 ML SYR IV SCH (14:00)
== END 2019-03-21 14:54 | disposition home or self-care (01) | DRG 193 ==
LOC: EDBD 14:56 → M ED 14:56 → M ED INP 18:27 → M PCU 19:19
PROVIDERS: ADMIT Student in an Organized Health Care Education/Training Program; ATTEND Family Medicine
DX: J18.9 Pneumonia, unspecified organism (principal); J96.21 Acute and chronic respiratory failure with hypoxia; E87.2 Acidosis; J44.1 Chronic obstructive pulmonary disease with (acute) exacerbation; I48.20 Chronic atrial fibrillation, unspecified; Z79.899 Other long term (current) drug therapy; M31.6 Other giant cell arteritis; F02.80 Dementia in other diseases classified elsewhere, unspecified severity, without behavioral disturbance, psychotic disturbance, mood disturbance, and anxiety; G30.9 Alzheimer's disease, unspecified; Z85.46 Personal history of malignant neoplasm of prostate; E03.9 Hypothyroidism, unspecified; M19.90 Unspecified osteoarthritis, unspecified site; Z79.01 Long term (current) use of anticoagulants; E53.8 Deficiency of other specified B group vitamins; Z79.52 Long term (current) use of systemic steroids; K21.9 Gastro-esophageal reflux disease without esophagitis; Z66 Do not resuscitate

== ENCOUNTER 2019-06-03 18:26 | Emergency (ER) | payer MEDICARE, OTHER ==
[~2019-06-03 18:26] MED LIST changes: +ALBU83IN INH; +AMMO12CR7 TOP; +AZIT-12 PO; +MUCI600T31 PO; +PRED10TA2 PO
[2019-06-03 19:04] LABS: BASO # 0.1 10^3/uL (0.0-0.2); BASO % 0.6 % (0.0-1.0); EOS # 0.1 10^3/uL (0.0-0.5); EOS % 1.6 % (0.0-3.0); HEMOGLOBIN 13.9 g/dl (13.5-17.5); LYMPH # 1.8 10^3/uL (1.5-5.0); MEAN CORPUSCULAR HGB CONC 31.6 g/dl (32.0-36.5); MEAN CORPUSCULAR VOLUME 98.2 fl (80.0-96.0); MONO # 0.5 10^3/uL (0.0-0.8); MONO % 5.8 % (0.0-5.0); NEUTROPHILS # 5.6 10^3/uL (1.5-8.5); NEUTROPHILS % 69.5 % (36.0-66.0); PLATELET COUNT, AUTOMATED 369 10^3/uL (150-450); RED BLOOD COUNT 4.48 10^6/uL (4.30-6.10); WHITE BLOOD COUNT 8.1 10^3/uL (4.0-10.0)
[2019-06-03 19:14] LABS: INR 1.11
--- NOTE | 2019-06-03 19:14 | REP ---
Clinical: Cough and dyspnea . Comparison: 03/18/2019 . Findings: The mediastinum and cardiac silhouette are stable and within normal limits for portable technique. The lung león demonstrate stable chronic changes without acute consolidation, effusion, or pneumothorax. Skeletal structures are intact. Impression: No acute cardiopulmonary process appreciated. Electronically Signed by Jordi Wagner MD 06/03/2019 07:05 P
[2019-06-03] MEDS: IPRATROPIUM 0.5MG/ALBUTEROL 2.5MG INH SOL UD 3ML (DUONEB)(J7620) NEB SCH ×3 (19:25→20:29)
[2019-06-03 19:36] LABS: ALBUMIN 3.4 GM/DL (3.2-5.2); ALT/SGPT 19 U/L (12-78); BILIRUBIN,DIRECT < 0.1 MG/DL (0.0-0.2); BILIRUBIN,TOTAL 0.3 MG/DL (0.2-1.0); BLOOD UREA NITROGEN 8 MG/DL (7-18); CARBON DIOXIDE LEVEL 32 MEQ/L (21-32); CHLORIDE LEVEL 102 MEQ/L (98-107); CK-MB VALUE MASS 1.6 NG/ML (<3.6); CPK CREATINE PHOSPHOKINASE 48 U/L (39-308); CREATININE FOR GFR 0.62 MG/DL (0.70-1.30); GLOMERULAR FILTRATION RATE > 60.0 (>42); GLUCOSE, FASTING 108 MG/DL (70-100); MB/CK RELATIVE INDEX 3.33 (< OR =4); NT-PRO BNP 172 PG/ML (<450); POTASSIUM SERUM 4.1 MEQ/L (3.5-5.1); SODIUM LEVEL 140 MEQ/L (136-145); TOTAL PROTEIN 6.9 GM/DL (6.4-8.2); TROPONIN I < 0.02 NG/ML (< 0.10)
[2019-06-03 21:00] VITALS: BP 163/74
[2019-06-03] MEDS ORDERED: MUCI60TA7 PO (21:09)
[2019-06-03] MEDS ORDERED: TESS100C PO (21:09)
[2019-06-03] MEDS ORDERED: PRED20TA PO (21:09)
[2019-06-03] MEDS ORDERED: guaiFENesin ER 600 MG TAB PO ONE (21:15)
[2019-06-03] MEDS ORDERED: BENZONATATE 100 MG CAP PO ONE (21:15)
--- NOTE | 2019-06-04 05:36 | ECGEPIP ---
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
== END 2019-06-03 21:26 | disposition home or self-care (01) ==
LOC: M ED 18:26
DX: I45.10 Unspecified right bundle-branch block (principal); J44.1 Chronic obstructive pulmonary disease with (acute) exacerbation; I48.91 Unspecified atrial fibrillation; F03.90 Unspecified dementia, unspecified severity, without behavioral disturbance, psychotic disturbance, mood disturbance, and anxiety; E78.5 Hyperlipidemia, unspecified; R91.8 Other nonspecific abnormal finding of lung field; I10 Essential (primary) hypertension; Z86.73 Personal history of transient ischemic attack (TIA), and cerebral infarction without residual deficits; Z85.46 Personal history of malignant neoplasm of prostate; Z92.3 Personal history of irradiation; Z98.61 Coronary angioplasty status; Z87.891 Personal history of nicotine dependence; Z79.01 Long term (current) use of anticoagulants; Z79.899 Other long term (current) drug therapy; Z88.8 Allergy status to other drugs, medicaments and biological substances

== ENCOUNTER → 2019-06-07 | Outpatient (REF) | payer OTHER ==
[~2019-06-07] MED LIST changes: +MUCI60TA7 PO; +TESS100C PO
[2019-06-07 17:11] LABS: PROSTATIC SPECIFIC AG MONITOR 0.32 NG/ML (< 4.00)
== END ==
LOC: M SFHCADAM 14:07
PROVIDERS: ATTEND Physician Assistant
DX: R10.13 Epigastric pain (principal); R06.02 Shortness of breath; Z85.46 Personal history of malignant neoplasm of prostate

== ENCOUNTER → 2019-06-08 | Outpatient (CLI) | payer OTHER ==
[~2019-06-08] MED LIST changes: +GASTROGRAFIN SOLUTION 30ML (Q9963) As Ordered ONE; +ISOVUE-370 76% 100ML VIAL (Q9967) As Ordered ONE
--- NOTE | 2019-06-08 15:33 | REP ---
Clinical: Acute pleuritic chest pain. Technique: Axial contrast enhanced images from the thoracic inlet to the upper abdomen with coronal and sagittal re-formations using 100 ml Isovue 370 intravenous contrast material. Comparison: 03/18/2019. Findings: Advanced emphysematous disease with bronchiectasis and scarring is appreciated. Previously noted scattered infiltrates have near completely resolved. An area of ill-defined nodularity and small consolidation within the right middle lobe has slightly increased from prior examination. No effusion. No pneumothorax. Mediastinum demonstrates atherosclerotic changes to the thoracic aorta and coronary arteries without aortic aneurysm or dissection. No cardiomegaly or pericardial effusion. No significant adenopathy noted. Skeletal structures demonstrate age-related changes without focal abnormality. Impression: 1. Advanced emphysematous disease. 2. A small area of ill-defined nodularity and consolidation involving the right middle lobe is slightly increased from prior examination. This may represent residual atelectasis or progressive secondary scarring. Consider short-term follow-up examination for reevaluation. Electronically Signed by Jordi Wagner MD 06/08/2019 03:25 P
--- NOTE | 2019-06-08 15:36 | REP ---
Clinical: Acute epigastric pain. Technique: Axial contrast enhanced images from the lung bases to the pubic symphysis using oral (per protocol) and 100 ml Isovue 370 intravenous contrast material with coronal and sagittal re-formations. Delayed images of the abdomen obtained. Findings: Liver, spleen, pancreas, gallbladder, bilateral adrenal glands and kidneys are normal. The enteric system is without obstruction or acute inflammatory process although moderate fecal stasis is suggested and should be correlated clinically. Scattered colonic diverticula noted without acute diverticulitis. Pelvis demonstrates prostatomegaly with mass effect on the base of the bladder. No ascites. No free air. No adenopathy. Atherosclerotic changes of the aorta and vasculature without aneurysm or dissection. Musculoskeletal structures demonstrate degenerative changes without acute abnormality. Impression: 1. Moderate fecal stasis. 2. Diverticulosis without acute diverticulitis. 3. Prostatomegaly. 4. No ascites, focal inflammatory stranding, or adenopathy. Electronically Signed by Jordi Wagner MD 06/08/2019 03:28 P
== END ==
LOC: M RAD 13:13
PROVIDERS: ATTEND Physician Assistant
DX: R10.13 Epigastric pain (principal); R07.81 Pleurodynia; K57.90 Diverticulosis of intestine, part unspecified, without perforation or abscess without bleeding; N40.0 Benign prostatic hyperplasia without lower urinary tract symptoms; J43.9 Emphysema, unspecified; R91.8 Other nonspecific abnormal finding of lung field
CPT/HCPCS: 71260; 74177; Q9963; Q9967

== ENCOUNTER 2019-08-21 14:52 | Emergency (ER) | payer OTHER ==
[~2019-08-21] VITALS: Ht 182.9 cm; Wt 77.6 kg
[~2019-08-21 14:52] MED LIST changes: -GASTROGRAFIN SOLUTION 30ML (Q9963) As Ordered ONE; -ISOVUE-370 76% 100ML VIAL (Q9967) As Ordered ONE
[2019-08-21] MEDS ORDERED: NS 1,000 ML IV SCH (15:13)
[2019-08-21] MEDS ORDERED: PANTOPRAZOLE 40MG VIAL (C9113 PER 1) IV ONE (15:15)
--- NOTE | 2019-08-21 15:43 | REP ---
Clinical: Right upper quadrant pain. Technique: Axial noncontrast images from the lung bases to the pubic symphysis with coronal and sagittal re-formations. Comparison: 06/08/2019. Findings: Lung bases demonstrate chronic emphysematous changes along with subtle superimposed trace right middle lobe and right lower lobe atelectasis/early infiltrates. Liver, spleen, pancreas, gallbladder, bilateral adrenal glands and kidneys are normal for noncontrast examination and stable. The enteric system is without obstruction or acute inflammatory process. Colonic and sigmoid diverticulosis noted without acute diverticulitis. Pelvis demonstrates enlarged prostate gland with mass effect and extension into the bladder base. No ascites. No free air. No adenopathy. Atherosclerotic changes of the aorta and vasculature without aneurysm or dissection. Musculoskeletal structures demonstrate age-related osteopenia and degenerative changes without acute osseous abnormality. Impression: 1. Lung bases demonstrate mild right middle lobe and right lower lobe atelectasis/subtle scattered early infiltrate. 2. No obvious acute abdominopelvic pathology. Specifically, no ascites, adenopathy, or focal inflammatory stranding. 3. Diverticulosis without acute diverticulitis. 4. Prostatomegaly with considerable extension into the base of the bladder again noted. Electronically Signed by Jordi Wagner MD 08/21/2019 03:35 P
[2019-08-21 16:05] LABS: BASO % 0.1 % (0.0-1.0); EOS % 0.3 % (0.0-3.0); HEMATOCRIT 42.9 % (42.0-52.0); HEMOGLOBIN 14.1 g/dl (13.5-17.5); LYMPH # 1.3 10^3/uL (1.5-5.0); LYMPH % 9.5 % (24.0-44.0); MEAN CORPUSCULAR HEMOGLOBIN 31.1 pg (27.0-33.0); MEAN CORPUSCULAR HGB CONC 32.9 g/dl (32.0-36.5); MEAN CORPUSCULAR VOLUME 94.7 fl (80.0-96.0); MONO # 0.7 10^3/uL (0.0-0.8); MONO % 5.5 % (0.0-5.0); NEUTROPHILS # 11.3 10^3/uL (1.5-8.5); NEUTROPHILS % 84.2 % (36.0-66.0); PLATELET COUNT, AUTOMATED 370 10^3/uL (150-450); RED BLOOD COUNT 4.53 10^6/uL (4.30-6.10); WHITE BLOOD COUNT 13.4 10^3/uL (4.0-10.0)
[2019-08-21 16:16] LABS: INR 0.95; PROTHROMBIN TIME 12.3 SECONDS (11.8-14.0)
[2019-08-21 16:40] LABS: ALBUMIN 3.3 GM/DL (3.2-5.2); ALT/SGPT 23 U/L (12-78); AMYLASE 48 U/L (25-115); BILIRUBIN,DIRECT 0.1 MG/DL (0.0-0.2); BILIRUBIN,TOTAL 0.3 MG/DL (0.2-1.0); BLOOD UREA NITROGEN 18 MG/DL (7-18); CALCIUM LEVEL 9.2 MG/DL (8.8-10.2); CARBON DIOXIDE LEVEL 28 MEQ/L (21-32); CHLORIDE LEVEL 105 MEQ/L (98-107); CPK CREATINE PHOSPHOKINASE 56 U/L (39-308); CREATININE FOR GFR 0.67 MG/DL (0.70-1.30); GLOMERULAR FILTRATION RATE > 60.0 (>42); GLUCOSE, FASTING 106 MG/DL (70-100); LIPASE 30 U/L (73-393); MB/CK RELATIVE INDEX 3.57 (< OR =4); SODIUM LEVEL 141 MEQ/L (136-145); TROPONIN I < 0.02 NG/ML (< 0.10)
--- NOTE | 2019-08-21 17:35 | REPVR ---
PROCEDURE INFORMATION: Exam: US Abdomen Limited, Right Upper Quadrant Exam date and time: 08/21/2019 5:20 PM Age: 78 years old Clinical indication: Abdominal pain; Epigastric; Additional info: Pain ruq TECHNIQUE: Imaging protocol: Real-time ultrasound of the abdomen with image documentation. Examination was focused on the right upper quadrant. COMPARISON: LIVER US 08/02/2015 1:56 PM FINDINGS: Liver: There is mild increase in liver echotexture. Gallbladder: Gallstones are present within the gallbladder. The gallbladder is partially collapsed. Common bile duct: Common bile duct measures 0.5 cm. Pancreas: Visualized pancreas is unremarkable. Right kidney: Right kidney measures at least 10.1 x 5.5 x 5.6 centimetres. No hydronephrosis in the visualized portion of the right kidney. Lower pole the right kidney not well seen due to bowel gas. IMPRESSION: 1. Cholelithiasis. Electronically signed by: Margot Youssef On 08/21/2019 17:34:58 PM
[2019-08-21] MEDS ORDERED: ZOFR4TAB16 PO (18:09)
[2019-08-21] MEDS ORDERED: NAPR-837 PO (18:09)
[2019-08-21 18:31] VITALS: BP 151/67
--- NOTE | 2019-08-23 14:43 | ED PDOC ---
Post-Departure Follow-Up airam kennedy faxed formal report of ct abd/p for fu Rae Crooks MD August 23, 2019 14:43
== END 2019-08-21 18:35 | disposition home or self-care (01) ==
LOC: M ED 14:52
DX: K80.20 Calculus of gallbladder without cholecystitis without obstruction (principal); R10.11 Right upper quadrant pain; I10 Essential (primary) hypertension; J44.9 Chronic obstructive pulmonary disease, unspecified; E07.9 Disorder of thyroid, unspecified; F17.200 Nicotine dependence, unspecified, uncomplicated; Z88.8 Allergy status to other drugs, medicaments and biological substances; Z79.899 Other long term (current) drug therapy; Z79.51 Long term (current) use of inhaled steroids
CPT/HCPCS: 36415; 74176; 76705; 80048; 80076; 82150; 82550; 82553; 83690; 84484; 85025; 85610; 93041; 96361; 96374; 99285; C9113

== ENCOUNTER → 2019-09-21 | Outpatient (CLI) | payer OTHER ==
[~2019-09-21] MED LIST changes: +NAPR-837 PO; +ZOFR4TAB16 PO
--- NOTE | 2019-09-21 13:24 | REP ---
HIDA SCAN WITH GALLBLADDER EJECTION FRACTION: Following the intravenous administration of 6.5 mCi technetium 99m mebrofenin, multiple images of the right upper quadrant are performed every 5 minutes for a period of 1 hour. Gallbladder is visualized at 15 minutes postinjection. There is [id number] transit at 10 minutes postinjection. There is no scintigraphic evidence of cholecystitis. At the 1-hour malachi, 8 ounces of Ensure Enlive is ingested and further imaging performed for 1 hour. Gallbladder activity is measured and the gallbladder ejection fraction is calculated to be 57%, which is normal. IMPRESSION: Normal gallbladder ejection fraction. Electronically Signed by Ever Mars MD 09/22/2019 07:07 P
== END ==
LOC: M RAD 07:31
PROVIDERS: ATTEND Surgery
DX: R10.11 Right upper quadrant pain (principal)
CPT/HCPCS: 78227; A9537

== ENCOUNTER → 2019-12-27 | Outpatient (REF) | payer OTHER ==
[~2019-12-27] MED LIST changes: +AMLO1TAB24 PO; -AMLO5TAB6 PO
[2019-12-27 16:13] LABS: HEMATOCRIT 46.1 % (42.0-52.0); HEMOGLOBIN 14.6 g/dl (13.5-17.5); MEAN CORPUSCULAR HEMOGLOBIN 30.8 pg (27.0-33.0); MEAN CORPUSCULAR HGB CONC 31.7 g/dl (32.0-36.5); MEAN CORPUSCULAR VOLUME 97.3 fl (80.0-96.0); PLATELET COUNT, AUTOMATED 386 10^3/uL (150-450); RED BLOOD COUNT 4.74 10^6/uL (4.30-6.10)
[2019-12-27 17:14] LABS: ALBUMIN 3.2 GM/DL (3.2-5.2); ALT/SGPT 17 U/L (12-78); BILIRUBIN,TOTAL 0.4 MG/DL (0.2-1.0); BLOOD UREA NITROGEN 16 MG/DL (7-18); CALCIUM LEVEL 8.8 MG/DL (8.8-10.2); CARBON DIOXIDE LEVEL 30 MEQ/L (21-32); CHLORIDE LEVEL 105 MEQ/L (98-107); CREATININE FOR GFR 0.71 MG/DL (0.70-1.30); FREE T4 1.39 NG/DL (0.76-1.46); GLOMERULAR FILTRATION RATE > 60.0 (>35); GLUCOSE, FASTING 75 MG/DL (70-100); SODIUM LEVEL 139 MEQ/L (136-145); TOTAL PROTEIN 6.5 GM/DL (6.4-8.2); VITAMIN B12 LEVEL 408 PG/ML (247-911)
== END ==
LOC: M LABDRWAD 15:47
PROVIDERS: ATTEND Physician Assistant
DX: F03.90 Unspecified dementia, unspecified severity, without behavioral disturbance, psychotic disturbance, mood disturbance, and anxiety (principal); E03.9 Hypothyroidism, unspecified; I48.91 Unspecified atrial fibrillation; E53.8 Deficiency of other specified B group vitamins